=== PATIENT | male | born 1955 | race Caucasian/White ===

== ENCOUNTER 2025-07-22 13:36 | Inpatient (IN) ==
--- NOTE | 2025-07-22 14:07 | Emergency Department Note ---
Impression & Plan CHANEL (acute kidney injury), Anemia, Acute hyponatremia, Alcohol use disorder ED Provider Note NAME: TRISTAN BULL AGE: 70 SEX: M : 1955 ARRIVES VIA: Walk-In INFORMANT: Patient, ED PROVIDER(S): Faisal Cain DO CHIEF COMPLAINT: abnormal outpatient labs HPI: This is a 70-year-old male with the PMHx of HTN and HLD presenting to [facility] for further evaluation of abnormal outpatient labs. Patient states that he is otherwise been in his normal state of health. He states he has no complaints at the present time. He states that these were routine labs. He states that he was told that his LFTs and kidney function were abnormal causing his presentation to the emergency department. The patient states that he has had worsening exertional fatigue over the last few months. The patient states that he has ongoing workup for possible issues with his heart secondary to his symptoms. He notes that he is on a statin and antihypertensives. He states that he recently finished a course of losartan and believes that he is not supposed to take this anymore. They deny fever or chills. No cough or congestion. Denies chest pain or palpitations. No shortness of breath. They deny abdominal pain, nausea and vomiting. No urinary complaints. He reports normal UOP. No recent changes in bowel movements. Patient denies recent changes in medications or OTC supplements. Patient offers no other complaints, today. ADDITIONAL HISTORY OBTAINED: Per HPI Chronic Medical/Social Conditions Affecting Care: Per HPI PAST MEDICAL HISTORY: See Below PAST SURGICAL HISTORY: See Below FAMILY HISTORY: See Below SOCIAL HISTORY: See Below HOME MEDICATIONS: See Below ALLERGIES: See Below VITALS: See Below PHYSICAL EXAMINATION: GENERAL: Sitting up in bed, alert, well appearing, well nourished, no distress, non-toxic EYE EXAM: normal conjunctiva. OROPHARYNX: no exudate, no erythema, lips, buccal mucosa, and tongue normal and mucous membranes are moist NECK: supple, no nuchal rigidity, no adenopathy, non-tender LUNGS: Clear to auscultation. Normal chest wall mechanics HEART: no murmurs, regular rate, regular rhythm ABDOMEN: abdomen soft, non-tender, no masses, no rebound or guarding. BACK: Back is symmetrical on inspection and there is no deformity, no midline tenderness, no CVA tenderness. SKIN: no rashes and no bruising UPPER EXTREMITIES: upper extremities are grossly normal. LOWER EXTREMITIES: No pitting edema. NEURO EXAM: Normal sensorium, GCS 15, normal speech, no gross weakness of arms, no gross weakness of legs. MEDICAL DECISION MAKING: Differential diagnoses includes but not limited to acute renal failure, obstructive uropathy, electrolyte derangements, dehydration, medication side effect, hepatorenal syndrome In summary, this is a 70 year old male who presented with abnormal outpatient labs. Differential as above. Nursing notes and pertinent past medical records reviewed. Vital signs reviewed and the patient is afebrile and HDS. History and presentation revealed recent outpatient labs at [place]. He was told abnormal LFTs and kidney function. ED psychiatric secretary will work on obtaining these records. Patient states that he feels in his normal state of health and has no complaints. He does note exertional fatigue that has worsened over the last few months. He is being evaluated for possible issues with his heart per patient. Physical examination revealed as above. As a result of my initial evaluation, we will plan to repeat labs. [facility] records were obtained. Labs of note show mild hypokalemia, hyponatremia, hypochloridemia, increased anion gap likely secondary to uremia. Creatinine is 4.46. Slight transaminitis. It does appear the patient has liver disease that he does not appear to be aware of. He appears to have an ultrasound from 2021 that showed evidence of cirrhosis. Labs in 2021 did show a transaminitis. It is suspected that this is related to alcohol use. Diagnostics interpreted by me include EKG and cardiac monitoring as listed below: -Cardiac Monitoring: An order was placed for continuous cardiac monitoring. The monitor shows a rate of 70-100s with regular rhythm. -ECG: normal sinus rhythm at a ventricular rate of [address] segment changes to suggest STEMI. Intervals are within normal limits. Patient completed laboratory studies and imaging. Results independently interpreted by me are mild anemia from baseline. No significant leukocytosis. Lactate levels normal. Acute renal failure on CMP but he is making urine. No obstruction. Renal US ordered. The patient was managed with close observation and telemetry given that he is high risk for decompensation and electrolyte derangements leading to arrhythmias. I suspect his CHANEL could be related to his antihypertensive agents. He does have alcohol use disorder and he will need to be closely monitored for withdrawal. Ultimately, the decision was made to admit the patient for CHANEL and hyponatremia. I discussed the case with the hospitalist service via telephone/T[employer] and they are agreeable to admit the patient to their services. Based on the above, including the patient's age, coexisting illnesses, labs, imaging, and exam findings the decision to treat as an inpatient. I discussed the patient with the hospitalist team who recommended admission to their services. They received the medications, treatments, interventions indicated above and their condition remained guarded. I discussed my findings with the patient and their family and they understand and agree with the treatment plan. All patient / family questions were answered to their satisfaction. Consults/Care Managements Discussions: Per MDM ER treatment provided: See above Procedures:none Critical Care: None The chart was completed utilizing [employer] Speech voice recognition software. Grammatical errors, random word insertions, pronoun errors, and incomplete sentences are an occasional consequence of this system due to software limitations, ambient noise, and hardware issues. Any formal questions or concerns about the content, text, or information contained within the body of this dictation should be directly addressed to the physician for clarification. Past Med/Surg History Problem List (Updated 07/23/25 @ 14:24 by Faisal Cain DO) Alcohol use disorder (Acute) Acute hyponatremia (Acute) Anemia (Acute) CHANEL (acute kidney injury) (Acute) Elevated LFTs Anemia Hyponatremia CHANEL (acute kidney injury) Actinic keratosis (Acute) Basal cell carcinoma of left lower extremity (Acute) Dermatitis, nummular (Acute) Dermatitis, seborrheic (Acute) Dysplastic nevus (Acute) History of basal cell carcinoma (Acute) History of squamous cell carcinoma in situ of skin (Acute) Neoplasm of uncertain behavior of skin (Acute) Rosacea (Acute) Urticaria (Acute) Skin cancer (Acute) Hypertension (Chronic) Malignant melanoma of left lateral thigh hx Medical History (Updated 07/23/25 @ 14:24 by Faisal Cain DO) Trouble getting to sleep Anxiety History of COVID-05 Oct 2023 > + home test/felt like i had a cold. Resolved. No current s/s. History of colon polyps x1 8 yr ago & removed Discomfort of back recent/noticing with extensive walking History of prediabetes Hypertension Hyperlipidemia Skin cancer BCC RT WRIST/hx removed Surgical History (Updated 07/22/25 @ 18:13 by Diana Srinivasan MD) H/O melanoma excision (04/07/20) Wide Local Excision Left Thigh Melanoma, Left Inguinal [place] Lymph Node Biopsy and Right Groin Exploration Dr. Mills 04/07/2020 Hx of cataract surgery right Hx of vasectomy History of colonoscopy [place] teeth removed History of tonsillectomy Status post left foot surgery H/O hernia repair at Family History (Updated 07/22/25 @ 18:13 by Diana Srinivasan MD) Father Heart disease, Onset Age: 48 Father of an UT at age 48 Sister Diabetes Scleroderma Other Dementia Social History (Updated 07/22/25 @ 18:15 by Diana Srinivasan MD) Smoking Status: Former smoker Tobacco Type: Cigarettes Second Hand Exposure: No; Do You Dip or Chew Tobacco: No; Hx Alcohol Use: Yes Alcohol type: beer Alcohol Intake Frequency: 4 or More x per/Week Alcohol Intake Frequency Comment: 3 beers Hx Substance Use: Yes Non-Prescribed Medications: Marijuana Substance Use Type Other:: card for sleep > advised Preferred Language: Ug[place] Communication Ability: Effective 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 Required: No Beliefs That Will Affect Care: None marital status: Current Living Situation: Spouse current occupational status: retired 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[employer], 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 [employer] Other Information That Helps Us Care for You: No Feels Safe at Home: Yes Safety Concerns: Feels Safe At This Time Assistive Devices: None Allergies Allergies Allergy/AdvReac Type Severity Reaction Status Date / Time cyclobenzaprine Allergy Unknown "FEELS Verified 12/19/23 09:33 [From Flexeril] DRUNK WITH MUSCLE RELAXERS" Home Meds Home Medications Medication Instructions Recorded Confirmed multivitamin (Daily Multi-Vitamin 1 tab PO QAM 03/01/20 07/22/25 tablet) losartan 50 mg tablet (Cozaar) 50 mg PO QAM 03/15/20 07/22/25 Medical Marijuana Card 1 dose PO UD PRN anxiety/sleep 11/26/23 07/22/25 chlorthalidone 25 mg tablet 25 mg PO DAILY 07/22/25 07/22/25 rosuvastatin 40 mg tablet 40 mg PO DAILY 07/22/25 07/22/25 Results & Data (ED) Vital Signs Vital Signs - 24 hr 07/22/25 14:23 07/22/25 15:00 07/22/25 16:00 Pulse Rate 85 79 81 Pulse Rate from SpO2 Sensor 79 88 Respiratory Rate 13 13 15 Blood Pressure 117/74 134/79 136/104 H Blood Pressure Mean 79 97 114 Pulse Oximetry 93 97 96 Oxygen Delivery Method Room Air Room Air Room Air Laboratory Data 07/23/25 05:50 07/23/25 05:50 Lab Results 07/22/25 07/22/25 Range/Units 14:23 15:50 WBC 9.87 (4.8-10.8) K/ul RBC 3.66 L (4.70-6.10) M/uL Hgb 12.9 L (14.0-18.0) g/dl Hct 37.4 L (42.0-52.0) % MCV 102.2 H (80.0-100.0) fL MCH 35.2 H (25.0-34.0) pg MCHC 34.5 (32.0-36.0) g/dL RDW Std Deviation 47.1 H (36.4-46.3) fL RDW Coeff of [place] 12.5 (11.5-14.5) % Plt Count 163 (130-400) K/uL MPV 9.6 (9.4-12.4) fL Immature Gran % (Auto) 0.3 % Neut % (Auto) 78.3 % Lymph % (Auto) 12.0 % [place] % (Auto) 7.9 % Eos % (Auto) 0.9 % Baso % (Auto) 0.6 % Neut # (Auto) 7.73 H (1.40-6.50) K/uL Lymph # (Auto) 1.18 L (1.20-3.40) K/uL [place] # (Auto) 0.78 H (0.11-0.59) K/uL Eos # (Auto) 0.09 (0.00-0.50) K/uL Baso # (Auto) 0.06 (0.00-0.20) K/uL Immature Gran # (Auto) 0.03 (0.01-0.20) K/uL PT 11.4 (9.0-12.0) Seconds INR 1.1 (0.9-1.1) APTT 27 (21-31) Seconds PTT Ratio 1.0 Sodium 133 L (136-145) mmol/L Potassium 3.6 (3.5-5.1) mmol/L Chloride 91 L (98-107) mmol/L Carbon Dioxide 29 (21-32) mmol/L Anion Gap 13 H (3-11) BUN 35 H (6-23) mg/dl Creatinine 4.58 H* (0.6-1.4) mg/dl Est Cr Clr Drug Dosing 19.5 ml/min eGFR 12.96 BUN/Creatinine Ratio 7.6 L (10-20) Glucose 119 H (70-99(Fasting)) mg/dl Lactate 1.8 (0.4-2.0) mmol/L Calcium 9.8 (8.6-10.3) mg/dl Total Bilirubin 0.8 (0.2-1.0) mg/dl Direct Bilirubin 0.1 (0-0.2) mg/dl AST 46 H (13-39) U/L ALT 46 (7-52) U/L Alkaline Phosphatase 132 H (34-104) U/L Total Creatine Kinase 117 (30-223) U/L Total Protein 8.0 (6.0-8.3) gm/dl Albumin 4.4 (3.4-5.0) gm/dl Lipase 28 (11-82) U/L Urine Color Yellow Urine Appearance Clear (Clear) Urine pH 7.5 (4.5-7.5) Ur Specific [place] 1.006 (1.000-1.030) Urine Protein 2+ H (Negative) Urine Glucose (UA) Negative (Negative) Urine Ketones Negative (Negative) Urine Blood 2+ H (Negative) Urine Nitrite Negative (Negative) Urine Bilirubin Negative (Negative) Urine Urobilinogen Negative (Negative) Ur Leukocyte Esterase Trace H (Negative) Urine WBC (Auto) 6-10 H (0-5) /hpf Urine RBC (Auto) 0-2 (0-2) /hpf U Hyaline Cast (Auto) 0-2 (0-2) /lpf U Epithel Cells (Auto) 3-5 H (0-2) /hpf Urine Bacteria (Auto) None Seen (None Seen) Ur Random Creatinine 41.8 mg/dl Ur Random Sodium 31 mmol/L Urine Comment Administered Medications Cyanocobalamin (Cyanocobalamin 1000 Mcg/Ml Vial) 1,000 mcg IM QAM [facility] Stop: 07/25/25 09:01 Last Admin: 07/23/25 09:40 Dose: 1,000 mcg Documented By: BAO Folic Acid (Folic Acid 1 Mg Tab) 1 mg PO QAM OPAL Stop: 08/22/25 08:59 Last Admin: 07/23/25 09:40 Dose: 1 mg Documented By: BAO Heparin Sodium (Porcine) (Heparin Sod 5,000 Unit/0.5 Ml Vial) 5,000 units SQ Q12 OPAL Stop: 08/21/25 21:03 Last Admin: 07/23/25 09:41 Dose: 5,000 units Documented By: Admin: 07/22/25 21:23 Dose: Not Given Documented By: DIANDRA Thiamine HCl (Thiamine Hcl 100 Mg Tab) 100 mg PO QAM OPAL Stop: 08/22/25 08:59 Last Admin: 07/23/25 09:40 Dose: 100 mg Documented By: JASON Discontinued Medications Sodium Chloride (Nss) 1,000 mls @ 125 mls/hr IV .Q8H OPAL Stop: 07/23/25 01:14 Last Infusion: 07/23/25 03:41 Dose: Infused Documented By: Admin: 07/22/25 17:32 Dose: 125 mls/hr Documented By: KIRA Potassium Chloride (Potassium Chloride Crtab 20 Meq Tabcr) 20 meq PO NOW STA Stop: 07/23/25 08:28 Last Admin: 07/23/25 09:40 Dose: 20 meq Documented By: [facility] Imaging Data Radiologist's Impression: Renal Ultrasound 07/22/25 15:10 Technique: Renal sonography was performed Findings: The kidneys are of normal size and echogenicity. The right kidney measures 14.9 cm in length and the left kidney measures 14.3 cm in length. There is no hydronephrosis or visualized hydroureter. No definite renal calculus or mass is seen. There is a 2.9 cm right renal cyst and there is a 3.7 cm left renal cyst The urinary bladder appears unremarkable. Impression: Bilateral renal cysts Electronically signed by Carmelo Steven 07-22-2025 5:28 PM Discharge Plan Visit Data Chief Complaint: Abnormal Labs/Diagnostic Testing Stated Complaint: DOC REFFEREAL ED Provider: Faisal Cain Discharge Problem: CHANEL (acute kidney injury), Anemia, Acute hyponatremia, Alcohol use disorder Patient Disposition: Admitted As Inpatient Condition: Serious Discharge Instructions Interventions: ED Discharge Assessment Last Done: 07/22/25 20:12
[2025-07-22 14:39] LABS: Hematocrit (blood only) 37.4 % (42.0-52.0); Hemoglobin 12.9 g/dl (14.0-18.0); Immature Granulocytes # (auto) 0.03 K/uL (0.01-0.20); Immature Granulocytes % (auto) 0.3 %; Mean Corpuscular Hemoglobin 35.2 pg (25.0-34.0); Mean Corpuscular Volume 102.2 fL (80.0-100.0); Platelet Count 163 K/uL (130-400); RDW Standard Deviation 47.1 fL (36.4-46.3); Red Blood Count 3.66 M/uL (4.70-6.10); White Blood Count 9.87 K/ul (4.8-10.8)
[2025-07-22 15:04] LABS: Alanine Aminotransferase 46.0 U/L (7-52); Albumin Level 4.4 gm/dl (3.4-5.0); Alkaline Phosphatase 132.0 U/L (34-104); Anion Gap 13.0 (3-11); Bilirubin,Total 0.8 mg/dl (0.2-1.0); Blood Urea Nitrogen 35.0 mg/dl (6-23); Calcium 9.8 mg/dl (8.6-10.3); Carbon Dioxide 29.0 mmol/L (21-32); Chloride 91.0 mmol/L (98-107); Creatinine Clr Calc Pharmacy 19.5 ml/min; Glucose 119.0 mg/dl (70-99(Fasting)); Lipase 28.0 U/L (11-82); Potassium 3.6 mmol/L (3.5-5.1); Sodium 133.0 mmol/L (136-145); Total Protein 8.0 gm/dl (6.0-8.3)
[2025-07-22 15:16] LABS: INR 1.1 (0.9-1.1); Partial Thromboplastin Time 27 Seconds (21-31); Prothrombin Time 11.4 Seconds (9.0-12.0)
--- NOTE | 2025-07-22 15:28 | History & Physical Report ---
Date of Service July 22, 2025 Assessment & Plan (1) CHANEL (acute kidney injury): (2) Hyponatremia: (3) Anemia: (4) Elevated LFTs: Plan This patient is a 70-year-old male with a history of HTN, hyperlipidemia, prediabetes, cirrhosis of the liver, and melanoma who presents to the ED at the direction of his PCP who found him to have an acute kidney injury and mildly elevated LFTs on outpatient labs. He has been having some worsening fatigue over the last month which is why the labs were drawn. He reports he typically walks 1 mile every day and noticed for the last month that he is only able to walk about three quarters of a mile before becoming fatigued. He denies chest pain or shortness of breath. He has also had some occasional lightheadedness with standing recently. He denies any significant abdominal distention. He does report some chronic swelling of the legs which was worse in February hence why he was placed on chlorthalidone and losartan for elevated blood pressure at that time. He denies any flank pain or abdominal pain, denies blood in the urine. No nausea/vomiting or diarrhea. He is making urine and otherwise feeling well. In the ED, his creatinine was found to be elevated at 4.58, sodium mildly low at 133, with a mild macrocytic anemia, and mildly elevated AST and alkaline phosphatase. His UA showed 2+ blood and 2+ protein but no RBCs or signs of infection. A renal ultrasound showed some renal cysts but otherwise normal. He will be admitted for acute kidney injury. #Acute kidney injury/hyponatremia-likely initially prerenal from chlorthalidone and ARB but with chronic use, now has led to ATN. Fortunately, other than some mild volume overload, he is not having any significant issues due to his CHANEL. He is nonoliguric, no hyperkalemia or acidosis. Sodium mildly low at 133. UA with blood and protein but no RBCs. CK normal. He does not have diabetes but does have HTN. He has a family history of autoimmune disease with scleroderma and his sister. Renal ultrasound without evidence of obstruction - Admit to PCU for telemetry/arrhythmia monitoring -Discontinue home chlorthalidone and losartan - Check urine sodium and urine creatinine to calculate fractional excretion of sodium - Give 1 L of normal saline at 125 mL/h - Follow BMP in the a.m. -Consult nephrology for further evaluation/management #Elevated LFTs/cirrhosis of the liver-AST 46, alk phos 132-both of these have been elevated in the past and are better now than before. He does have a known history of cirrhosis which he was unaware of but is seen on imaging. He does drink 3 beers each day and is obese. Cirrhosis noted on abdominal ultrasound performed in 03/2025. Cirrhosis is likely cause of the elevation of his LFTs. He is also on a statin drug, CK is negative. - Would encourage cutting down or cessation of all alcohol use - Follow LFTs - Consider GI referral as an outpatient - Hold statin for now #HTN/HLD-BPs here are only mildly elevated. - Stopping chlorthalidone and losartan as noted for CHANEL - Holding statin for elevated LFTs #Prediabetes-he was told as an outpatient that with recent weight loss and exercise, he no longer has prediabetes - Check HgbA1c in the a.m. DVT prophylaxis-SQ heparin Disposition-admit to telemetry unit History of Present Illness Chief Complaint: Abnormal labs Primary Care Provider: Shweta Underwood This patient is a 70-year-old male with a history of HTN, hyperlipidemia, prediabetes, cirrhosis of the liver, and melanoma who presents to the ED at the direction of his PCP who found him to have an acute kidney injury and mildly elevated LFTs on outpatient labs. He has been having some worsening fatigue over the last month which is why the labs were drawn. He reports he typically walks 1 mile every day and noticed for the last month that he is only able to walk about three quarters of a mile before becoming fatigued. He denies chest pain or shortness of breath. He has also had some occasional lightheadedness with standing recently. He denies any significant abdominal distention. He does report some chronic swelling of the legs which was worse in February hence why he was placed on chlorthalidone and losartan for elevated blood pressure at that time. He denies any flank pain or abdominal pain, denies blood in the urine. No nausea/vomiting or diarrhea. He is making urine and otherwise feeling well. In the ED, his creatinine was found to be elevated at 4.58, sodium mildly low at 133, with a mild macrocytic anemia, and mildly elevated AST and alkaline phosphatase. His UA showed 2+ blood and 2+ protein but no RBCs or signs of infection. A renal ultrasound showed some renal cysts but otherwise normal. He will be admitted for acute kidney injury. Allergies Allergy/AdvReac Type Severity Reaction Status Date / Time cyclobenzaprine Allergy Unknown "FEELS Verified 12/19/23 09:33 [From Flexeril] DRUNK WITH MUSCLE RELAXERS" Home Medications Medication Instructions Recorded Confirmed Type multivitamin (Daily Multi-Vitamin 1 tab PO QAM 03/01/20 07/22/25 History tablet) losartan 50 mg tablet (Cozaar) 50 mg PO QAM 03/15/20 07/22/25 History Medical Marijuana Card 1 dose PO UD PRN anxiety/sleep 11/26/23 07/22/25 History chlorthalidone 25 mg tablet 25 mg PO DAILY 07/22/25 07/22/25 History rosuvastatin 40 mg tablet 40 mg PO DAILY 07/22/25 07/22/25 History Past Med/Surg History Problem List (Updated 07/22/25 @ 18:13 by Diana Srinivasan MD) Elevated LFTs Anemia Hyponatremia CHANEL (acute kidney injury) Actinic keratosis (Acute) Basal cell carcinoma of left lower extremity (Acute) Dermatitis, nummular (Acute) Dermatitis, seborrheic (Acute) Dysplastic nevus (Acute) History of basal cell carcinoma (Acute) History of squamous cell carcinoma in situ of skin (Acute) Neoplasm of uncertain behavior of skin (Acute) Rosacea (Acute) Urticaria (Acute) Skin cancer (Acute) Hypertension (Chronic) Malignant melanoma of left lateral thigh hx Medical History (Updated 07/22/25 @ 18:13 by Diana Srinivasan MD) Trouble getting to sleep Anxiety History of COVID-05 Oct 2023 > + home test/felt like i had a cold. Resolved. No current s/s. History of colon polyps x1 8 yr ago & removed Discomfort of back recent/noticing with extensive walking History of prediabetes Hypertension Hyperlipidemia Skin cancer BCC RT WRIST/hx removed Surgical History (Updated 07/22/25 @ 18:13 by Diana Srinivasan MD) H/O melanoma excision (04/07/20) Wide Local Excision Left Thigh Melanoma, Left Inguinal [place] Lymph Node Biopsy and Right Groin Exploration Dr. Mills 04/07/2020 Hx of cataract surgery right Hx of vasectomy History of colonoscopy [place] teeth removed History of tonsillectomy Status post left foot surgery H/O hernia repair at Family History (Updated 07/22/25 @ 18:13 by Diana Srinivasan MD) Father Heart disease, Onset Age: 48 Father of an AL at age 48 Sister Diabetes Scleroderma Other Dementia Social History (Updated 07/22/25 @ 18:15 by Diana Srinivasan MD) Smoking Status: Former smoker Tobacco Type: Cigarettes Second Hand Exposure: No; Do You Dip or Chew Tobacco: No; Hx Alcohol Use: Yes Alcohol type: beer Alcohol Intake Frequency: 4 or More x per/Week Alcohol Intake Frequency Comment: 3 beers Hx Substance Use: Yes Non-Prescribed Medications: Marijuana Substance Use Type Other:: card for sleep > advised Preferred Language: Cymro Communication Ability: Effective Manager Scheduling Required: No Beliefs That Will Affect Care: None marital status: Current Living Situation: Spouse current occupational status: retired 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 Feels Safe at Home: Yes Assistive Devices: Glasses Review of Systems Review of Systems: All systems reviewed & are unremarkable except as noted in HPI & below Physical Exam Constitutional: WD/WN, vitals as above Eyes: PERRL, conjunctivae normal, anicteric sclerae ENMT: external ear and nose normal, oropharynx normal Neck: trachea midline, no thyromegaly Respiratory: normal respiratory effort, lungs clear to auscultation Cardiovascular: Rate/Rhythm: regular rate and regular rhythm Heart Sounds: no murmur Extremities: + edema (1+ pitting edema legs bilaterally left greater than right) Chest (Breasts): Chest: normal inspection of chest Gastrointestinal (Abdomen): normal bowel sounds, soft, nontender, no hepatosplenomegaly Inspection/Auscultation: + abdomen abnormal to inspection (Reducible periumbilical hernia) Musculoskeletal: Extremities: extremities normal to inspection; no cyanosis and no clubbing Skin: no rashes, warm and dry Neurologic: moves all extremities and awake; no focal motor deficits Psychiatric: A+Ox3, euthymic affect Results & Data Results & Data Vital Signs (Past 12 Hours) Vital Signs Temp Pulse Resp BP Pulse Ox O2 Del Method 07/22/25 14:14 94 Room Air 07/22/25 13:40 36.4 C L 108 H 20 109/69 93 Room Air Laboratory Results CBC, PT/PTT/INR, CMP, lipase, UA reviewed Diagnostic Findings Renal Ultrasound 07/22/25 15:10 Technique: Renal sonography was performed Findings: The kidneys are of normal size and echogenicity. The right kidney measures 14.9 cm in length and the left kidney measures 14.3 cm in length. There is no hydronephrosis or visualized hydroureter. No definite renal calculus or mass is seen. There is a 2.9 cm right renal cyst and there is a 3.7 cm left renal cyst The urinary bladder appears unremarkable. Impression: Bilateral renal cysts Electronically signed by Carmelo Stevne 07-22-2025 5:28 PM ECG Additional Comments: ECG on 07/22/2025 at 1414 with normal sinus rhythm, rate 83, no acute ischemic changes Code Status & VTE Plan Code Status Full code VTE Prophylaxis Plan VTE Prophylaxis will be ordered: Yes PG Care Time/CCT Total # of Minutes Spent Total Time Spent with Patient: Total time spent is greater than 50% in coordination of care (as documented) at patient's floor/unit and/or counseling patient: Coding Level of Care Code 79809 INT INP/OBS CARE 3/75MIN Diagnoses CHANEL (acute kidney injury) N17.9 Hyponatremia E87.1 Anemia D64.9 Elevated LFTs R79.89
[2025-07-22 16:19] LABS: Appearance Urine Clear (Clear); Bacteria Urine Automated None Seen (None Seen); Cast Urine Automated 0-2 /lpf (0-2); Glucose Urine UA Negative (Negative); RBC Urine Automated 0-2 /hpf (0-2)
--- NOTE | 2025-07-22 17:28 | Ultrasound Report ---
Technique: Renal sonography was performed Findings: The kidneys are of normal size and echogenicity. The right kidney measures 14.9 cm in length and the left kidney measures 14.3 cm in length. There is no hydronephrosis or visualized hydroureter. No definite renal calculus or mass is seen. There is a 2.9 cm right renal cyst and there is a 3.7 cm left renal cyst The urinary bladder appears unremarkable. Impression: Bilateral renal cysts Electronically signed by Carmelo Steven 07-22-2025 5:28 PM
[2025-07-22] MEDS: SODIUM CHLORIDE 0.9% 1,000 ML IV SCH (17:32)
[2025-07-22 17:41] LABS: Creatine Kinase 117.0 U/L (30-223)
[2025-07-22] MEDS ORDERED: ONDANSETRON INJ 2 MG/ML 2 ML VIAL IV PRN (21:04)
[2025-07-22] MEDS ORDERED: ACETAMINOPHEN 325 MG TAB PO PRN (21:04)
[2025-07-22] MEDS: HEPARIN SOD 5,000 UNIT/0.5 ML VIAL SQ SCH (21:23)
[2025-07-23 06:35] LABS: Hematocrit (blood only) 32.7 % (42.0-52.0); Hemoglobin 11.5 g/dl (14.0-18.0); Immature Granulocytes # (auto) 0.02 K/uL (0.01-0.20); Immature Granulocytes % (auto) 0.3 %; Mean Corpuscular Hemoglobin 36.1 pg (25.0-34.0); Mean Corpuscular Volume 102.5 fL (80.0-100.0); Platelet Count 140 K/uL (130-400); RDW Standard Deviation 46.6 fL (36.4-46.3); Red Blood Count 3.19 M/uL (4.70-6.10); White Blood Count 7.86 K/ul (4.8-10.8)
[2025-07-23 07:03] LABS: Hemoglobin A1C 5.7 % (4.5-5.6)
[2025-07-23 07:04] LABS: Alanine Aminotransferase 34.0 U/L (7-52); Albumin Level 3.7 gm/dl (3.4-5.0); Alkaline Phosphatase 118.0 U/L (34-104); Anion Gap 13.0 (3-11); Bilirubin,Total 0.7 mg/dl (0.2-1.0); Blood Urea Nitrogen 40.0 mg/dl (6-23); Calcium 9.0 mg/dl (8.6-10.3); Carbon Dioxide 27.0 mmol/L (21-32); Chloride 96.0 mmol/L (98-107); Creatinine Clr Calc Pharmacy 17.4 ml/min; Glucose 109.0 mg/dl (70-99(Fasting)); Iron 31.0 mcg/dl (35-175); Magnesium 1.8 mg/dl (1.7-2.4); Potassium 3.0 mmol/L (3.5-5.1); Sodium 136.0 mmol/L (136-145); Total Iron Binding Cap Calc 270.0 mcg/dl (250-450); Total Protein 6.7 gm/dl (6.0-8.3); Transferrin 193.0 mg/dl (200-360); Transferrin (FE) Percent Satur 11.0 % (20-50)
[2025-07-23 07:13] LABS: Folate (Folic Acid),Ser orPlas 11.04 ng/ml (>5.38)
[2025-07-23 07:14] LABS: Vitamin B12 106.0 pg/ml (180-914)
[2025-07-23 07:16] LABS: Thyroid Stimulating Hormone 1.397 uIu/ml (0.300-4.500)
[2025-07-23 07:21] LABS: Ferritin 539.1 ng/ml (8-388)
--- NOTE | 2025-07-23 08:41 | Nephrology Consultation ---
Date of Consultation July 23, 2025 Assessment & Plan (1) CHANEL (acute kidney injury): Non-oliguric. Volume status acceptable. Electrolytes notable for mild hyponatremia and hypokalemia. Electrolyte replacement is being provided. There is no emergent indication for dialysis. US did not demonstrate obstruction. Duplex is pending. Urine microscopy notable for a few WBCs but otherwise no RBCs or casts. Etiology unclear. Differential includes ATN possibly triggered by hemodynamic changes from chlorthalidone and losartan, AIN, or possible an infiltrative disease or paraprotein. For additional evaluation, I have requested SIEP + FLC as well as 24 hour urine immunofixation. Defer renal biopsy pending additional monitoring. Hold losartan and chlorthalidone. Document strict I/O's. Repeat a serum metabolic profile tomorrow AM. (2) Hypertension: BP acceptable. Antihypertensives held. Low sodium diet. (3) Hyponatremia: Improving. Attributed to chlorthalidone. Hypokalemia is being treated with replacement. (4) Anemia: Noted B vitamin deficiency and functional iron deficiency. Screening SIEP requested. (5) Elevated LFTs: Statin held. History of Present Illness Reason for Consultation: CHANEL Requesting Physician: Diana Srinivasan MD Attending Physician: Diana Srinivasan MD History of Present Illness Mr. Raghu Brink ([place]) is a 70-year-old male with hypertension, hyperlipidemia, prediabetes, cirrhosis of the liver, and a history of melanoma resected from his thigh who presented to the ED at [facility] yesterday at the advice of his PCP for laboratory studies showing acute kidney injury and slight elevation in transaminases. Nasir generally feels well. He presented to the hospital without acute complaints. Activity tolerance has been decreased due to exertional fatigue over the past ~1-2 months. He denies significant dyspnea. He has not been experiencing chest pains or palpitations. He denies dizziness, syncope, or presyncope. He reports mild lightheadedness when standing. Nasir had recently developed lower extremity edema in his left ankle which has improved. In February, he was started on chlorthalidone and losartan for elevated blood pressure and fluid retention. BP improved with the medications. He has not experienced any change in urine output. He denies any GI symptoms. He denies any rash. He denies any NSAID use. Serum creatinine in February was 0.7 mg/dL. Serum creatinine on admission 4.58 and now 5.37 mg/dL. Electrolytes notable for mild hyponatremia and hypokalemia. Potassium replacement is being provided. Laboratory studies also notable for mild anemia. CK 117. UA demonstrates 2+ and +blood. Microscopy demonstrating 6-10 WBC, no RBCs or casts. Renal ultrasound demonstrates a 14.9 cm right kidney and 14.3 m left kidney. Kidneys are healthy in appearance and without signs of obstruction. a 2.9 cm cysts is noted on the right and 3.7 cm cyst on the left. Liver has hepatitic steatosis with evidence of cirrhosis. TTE recently completed for evaluation of exertional fatigue demonstrates normal LV size and function (LVEF 60-65%), mild LVH, and trace pulm v regurgitation but otherwise no significant valvular heart disease. He is normotensive. He is oxygenating well on room air. Allergies Allergy/AdvReac Type Severity Reaction Status Date / Time cyclobenzaprine Allergy Unknown "FEELS Verified 12/19/23 09:33 [From Flexeril] DRUNK WITH MUSCLE RELAXERS" Home Medications Medication Instructions Recorded Confirmed Type multivitamin (Daily Multi-Vitamin 1 tab PO QAM 03/01/20 07/22/25 History tablet) losartan 50 mg tablet (Cozaar) 50 mg PO QAM 03/15/20 07/22/25 History Medical Marijuana Card 1 dose PO UD PRN anxiety/sleep 11/26/23 07/22/25 History chlorthalidone 25 mg tablet 25 mg PO DAILY 07/22/25 07/22/25 History rosuvastatin 40 mg tablet 40 mg PO DAILY 07/22/25 07/22/25 History Patient History Medical History (Updated 07/22/25 @ 18:13 by Diana Srinivasan MD) Trouble getting to sleep Anxiety History of COVID-05 Oct 2023 > + home test/felt like i had a cold. Resolved. No current s/s. History of colon polyps x1 8 yr ago & removed Discomfort of back recent/noticing with extensive walking History of prediabetes Hypertension Hyperlipidemia Skin cancer BCC RT WRIST/hx removed Surgical History (Updated 07/22/25 @ 18:13 by Diana Srinivasan MD) H/O melanoma excision (04/07/20) Wide Local Excision Left Thigh Melanoma, Left Inguinal [place] Lymph Node Biopsy and Right Groin Exploration Dr. Mills 04/07/2020 Hx of cataract surgery right Hx of vasectomy History of colonoscopy [place] teeth removed History of tonsillectomy Status post left foot surgery H/O hernia repair at Family History (Updated 07/22/25 @ 18:13 by Diana Srinivasan MD) Father Heart disease, Onset Age: 48 Father of an [place] at age 48 Sister Diabetes Scleroderma Other Dementia Social History (Updated 07/22/25 @ 18:15 by Diana Srinivasan MD) Smoking Status: Former smoker Tobacco Type: Cigarettes Second Hand Exposure: No; Do You Dip or Chew Tobacco: No; Hx Alcohol Use: Yes Alcohol type: beer Alcohol Intake Frequency: 4 or More x per/Week Alcohol Intake Frequency Comment: 3 beers Hx Substance Use: Yes Non-Prescribed Medications: Marijuana Substance Use Type Other:: card for sleep > advised Preferred Language: Romanian Communication Ability: Effective Training And Development Coordinator Required: No Beliefs That Will Affect Care: None marital status: Current Living Situation: Spouse current occupational status: retired 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[place], 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 [employer] Other Information That Helps Us Care for You: No Feels Safe at Home: Yes Safety Concerns: Feels Safe At This Time Assistive Devices: Glasses Review of Systems Review of Systems: All systems reviewed & are unremarkable except as noted in HPI & below Physical Exam Constitutional: well developed; no acute distress Eyes: + anicteric sclerae; no conjunctival abn ormality ENMT: external ear and nose normal, oropharynx normal Neck: normal visual inspection and trachea midline Respiratory: normal respiratory effort Auscultation: lungs clear to auscultation bilaterally Cardiovascular: Rate/Rhythm: regular rate and regular rhythm Heart Sounds: normal S1 and normal S2 Extremities: + edema (L>R) Musculoskeletal: Extremities: no cyanosis and no clubbing Skin: facial telangectasias and rosacea Neurologic: Motor/Sensory: no tremor and no asterixis Psychiatric: Orientation: alert and oriented x 3 Results & Data Vital Signs (Past 12 Hours) Vital Signs Temp Pulse Pulse Resp BP Pulse Ox O2 Del Method 07/23/25 07:41 37.0 C 83 20 114/70 93 Room Air 07/23/25 07:27 97 H 07/23/25 04:11 37.0 C 88 20 109/67 94 Room Air 07/22/25 23:53 36.8 C 87 20 108/69 95 Room Air 07/22/25 21:14 107 H 07/22/25 21:04 Room Air 07/22/25 21:04 36.7 C 86 14 147/88 H 93 Room Air Laboratory Results Laboratory Results - last 24 hr 07/22/25 07/22/25 07/23/25 14:23 15:50 05:50 WBC 9.87 7.86 RBC 3.66 L 3.19 L Hgb 12.9 L 11.5 L Hct 37.4 L 32.7 L MCV 102.2 H 102.5 H MCH 35.2 H 36.1 H MCHC 34.5 35.2 RDW Std Deviation 47.1 H 46.6 H RDW Coeff of [place] 12.5 12.3 Plt Count 163 140 MPV 9.6 10.1 Immature Gran % (Auto) 0.3 0.3 Neut % (Auto) 78.3 76.3 Lymph % (Auto) 12.0 13.7 [place] % (Auto) 7.9 8.1 Eos % (Auto) 0.9 1.1 Baso % (Auto) 0.6 0.5 Neut # (Auto) 7.73 H 5.99 Lymph # (Auto) 1.18 L 1.08 L [place] # (Auto) 0.78 H 0.64 H Eos # (Auto) 0.09 0.09 Baso # (Auto) 0.06 0.04 Immature Gran # (Auto) 0.03 0.02 PT 11.4 INR 1.1 APTT 27 PTT Ratio 1.0 Sodium 133 L 136 Potassium 3.6 3.0 L Chloride 91 L 96 L Carbon Dioxide 29 27 Anion Gap 13 H 13 H BUN 35 H 40 H Creatinine 4.58 H* 5.37 H* D Est Cr Clr Drug Dosing 19.5 17.4 eGFR 12.96 10.71 BUN/Creatinine Ratio 7.6 L 7.4 L Glucose 119 H 109 H Estimat Average Glucose 117 Hemoglobin A1c 5.7 H Lactate 1.8 Calcium 9.8 9.0 Phosphorus 4.2 Magnesium 1.8 Iron 31 L TIBC 270 Transferrin 193 L Transferrin % Sat 11 L Ferritin 539.1 H Total Bilirubin 0.8 0.7 Direct Bilirubin 0.1 0.1 AST 46 H 36 ALT 46 34 Alkaline Phosphatase 132 H 118 H Total Creatine Kinase 117 Total Protein 8.0 6.7 Albumin 4.4 3.7 Lipase 28 Vitamin B12 106 L Folate 11.04 TSH 1.397 Urine Color Yellow Urine Appearance Clear Urine pH 7.5 Ur Specific [place] 1.006 Urine Protein 2+ H Urine Glucose (UA) Negative Urine Ketones Negative Urine Blood 2+ H Urine Nitrite Negative Urine Bilirubin Negative Urine Urobilinogen Negative Ur Leukocyte Esterase Trace H Urine WBC (Auto) 6-10 H Urine RBC (Auto) 0-2 U Hyaline Cast (Auto) 0-2 U Epithel Cells (Auto) 3-5 H Urine Bacteria (Auto) None Seen Ur Random Creatinine 41.8 Ur Random Sodium 31 Urine Comment Diagnostic Findings Renal ultrasound Findings: The kidneys are of normal size and echogenicity. The right kidney measures 14.9 cm in length and the left kidney measures 14.3 cm in length. There is no hydronephrosis or visualized hydroureter. No definite renal calculus or mass is seen. There is a 2.9 cm right renal cyst and there is a 3.7 cm left renal cyst The urinary bladder appears unremarkable. Impression: Bilateral renal cysts PG Care Time/CCT Total # of Minutes Spent Total Time Spent with Patient: Total time spent is greater than 50% in coordination of care (as documented) at patient's floor/unit and/or counseling patient: Coding Level of Care Code 68115 IN/OBS CONSULT LVL 4,60M Diagnoses CHANEL (acute kidney injury) N17.9 Hypertension I10 Hyponatremia E87.1 Anemia D64.9 Elevated LFTs R79.89
--- NOTE | 2025-07-23 09:35 | Ultrasound Report ---
DOPPLER ULTRASOUND OF THE RENAL ARTERIES CLINICAL HISTORY: Acute kidney injury. COMPARISON STUDY: Renal ultrasound July 22, 2025. CT of the abdomen and pelvis October 22, 2007. TECHNIQUE: Color and duplex Doppler sonography of the abdominal aorta and renal arteries was performe d. FINDINGS: The right kidney measures 13.7 cm in maximal dimension and the left measures 15.5 cm. There is no hydronephrosis. The bilateral renal arteries and veins were patent. Peak systolic velocity wit hin the abdominal aorta was 135 cm/s. Peak systolic velocity within the right renal artery was 85 cm/ s and the peak systolic velocity within the left renal artery was 82 cm/s. Segmental waveforms within each kidney were normal. IMPRESSION: No sonographic evidence for renal artery stenosis. ACT 112: Negative or not required by law. Electronically signed by: Eliot Bowen M.D. 07/23/2025 9:33 AM
[2025-07-23] MEDS: FOLIC ACID 1 MG TAB PO SCH (09:40)
[2025-07-23] MEDS: THIAMINE HCL 100 MG TAB PO SCH (09:40)
[2025-07-23] MEDS: POTASSIUM CHLORIDE CRTAB 20 MEQ TABCR PO STA (09:40)
[2025-07-23] MEDS: CYANOCOBALAMIN 1000 MCG/ML VIAL IM SCH (09:40)
--- NOTE | 2025-07-23 09:57 | Electrocardiogram Report ---
Test Reason : Blood Pressure : */* mmHG Vent. Rate : 83 BPM Atrial Rate : 83 BPM P-R Int : 186 ms QRS Dur : 88 ms QT Int : 368 ms P-R-T Axes : 26 -1 33 degrees QTcB Int : 432 ms Normal sinus rhythm Low voltage QRS Nonspecific ST and T wave abnormality Abnormal ECG When compared with ECG of 12-Mar-2020 12:48, Nonspecific T wave abnormality now evident in Anterior leads Confirmed by Rishi Wilkins ([id number]) on 07/23/2025 9:57:01 AM Referred By: Confirmed By: Rishi Wilkins
--- NOTE | 2025-07-23 18:30 | Hospitalist Progress Note ---
Date of Service July 23, 2025 Assessment & Plan (1) CHANEL (acute kidney injury): (2) Hyponatremia: (3) Anemia: (4) Elevated LFTs: Plan This patient is a 70-year-old male with a history of HTN, hyperlipidemia, prediabetes, cirrhosis of the liver, and melanoma who presents to the ED at the direction of his PCP who found him to have an acute kidney injury and mildly elevated LFTs on outpatient labs. He has been having some worsening fatigue over the last month which is why the labs were drawn. He reports he typically walks 1 mile every day and noticed for the last month that he is only able to walk about three quarters of a mile before becoming fatigued. He denies chest pain or shortness of breath. He has also had some occasional lightheadedness with standing recently. He denies any significant abdominal distention. He does report some chronic swelling of the legs which was worse in February hence why he was placed on chlorthalidone and losartan for elevated blood pressure at that time. He denies any flank pain or abdominal pain, denies blood in the urine. No nausea/vomiting or diarrhea. He is making urine and otherwise feeling well. On admission, his creatinine was found to be elevated at 4.58, sodium mildly low at 133, with a mild macrocytic anemia, and mildly elevated AST and alkaline phosphatase. His UA showed 2+ blood and 2+ protein but no RBCs or signs of infection. A renal ultrasound showed some renal cysts but otherwise normal. He is admitted for acute kidney injury. #Acute kidney injury/hyponatremia/hypokalemia-likely initially prerenal from chlorthalidone and ARB but with chronic use, now has led to ATN. Fortunately, other than some mild volume overload, he is not having any significant issues due to his CHANEL. He is nonoliguric, no hyperkalemia or acidosis. Sodium mildly low at 133 and now normalized. UA with blood and protein but no RBCs. CK normal. FeNa 2.6% on admission consistent with intrinsic renal failure. He does not have diabetes but does have HTN. He has a family history of autoimmune disease with scleroderma and his sister. Renal ultrasound without evidence of obstruction. Renal Doppler negative. Appreciate nephrology consultation. Creatinine worsened to 5.3 after 1 L normal saline. K is low at 3.0 - Continued stay on telemetry unit for arrhythmia monitoring -Discontinued home chlorthalidone and losartan - Follow BMP in the a.m. - Nephrology recommended SIEP, FLC, 24-hour urine CAMPOS/UPEP, and defer on renal biopsy pending additional monitoring - Replace KCl 20 mEq p.o. x 1 #Elevated LFTs/cirrhosis of the liver-AST 46, alk phos 132-both of these have been elevated in the past and are better now than before. He does have a known history of cirrhosis which he was unaware of but is seen on imaging. He may have some cognitive impairment as he follows regularly with GI for his liver issues but does not recall this. He does drink 3 beers each day and is obese. Cirrhosis noted on abdominal ultrasound performed in 03/2025. Cirrhosis is likely cause of the elevation of his LFTs. He is also on a statin drug, CK is negative. LFTs now normalized except for mild elevation of alkaline phosphatase. - Would encourage cutting down or cessation of all alcohol use - Follow LFTs - Follows with GI at [facility] as an outpatient - Hold statin for now #B12 deficiency anemia-hemoglobin low at 11-12, macrocytic. B12 quite low at 106. Iron studies consistent with chronic disease, folate and TSH are normal. Patient's macrocytosis likely due to alcohol use - Give cyanocobalamin 1000 mcg IM daily x 3 days followed by 1000 mcg p.o. daily after that - Encouraged alcohol cessation #HTN/HLD-BPs here are only mildly elevated. - Stopping chlorthalidone and losartan as noted for CHANEL - Holding statin for elevated LFTs #Prediabetes-he was told as an outpatient that with recent weight loss and exercise, he no longer has prediabetes. HgbA1c just barely in prediabetic range at 5.7% -No treatment for now - Continue low carbohydrate diet and weight loss at home DVT prophylaxis-SQ heparin Disposition-continued stay on telemetry unit Admission and Anticipated Discharge Date Admission Date: July 22, 2025 Subjective Patient reports feeling "fine." He has no concerns. Denies shortness of breath. No fatigue. He is making urine. Physical Exam Constitutional: WD/WN, vitals as above Neck: trachea midline, no thyromegaly Respiratory: normal respiratory effort, lungs clear to auscultation Cardiovascular: Rate/Rhythm: regular rate and regular rhythm Heart Sounds: no murmur Extremities: + edema (1+ pitting edema legs bilaterally left greater than right) Chest (Breasts): Chest: normal inspection of chest Musculoskeletal: Extremities: extremities normal to inspection; no cyanosis and no clubbing Skin: no rashes, warm and dry Neurologic: moves all extremities and awake; no focal motor deficits Psychiatric: A+Ox3, euthymic affect Results & Data Results & Data Vital Signs (Past 12 Hours) Vital Signs Temp Pulse Pulse Resp BP Pulse Ox O2 Del Method 07/23/25 15:37 85 07/23/25 15:24 36.8 C 81 20 104/64 95 Room Air 07/23/25 07:41 37.0 C 83 20 114/70 93 Room Air 07/23/25 07:27 97 H Laboratory Results CBC, BMP, HgbA1c, magnesium, phosphorus, iron studies, B12, LFTs, folate, TSH, urine sodium, urine creatinine reviewed Diagnostic Findings Renal Doppler reviewed PG Care Time/CCT Total # of Minutes Spent Total Time Spent with Patient: Total time spent is greater than 50% in coordination of care (as documented) at patient's floor/unit and/or counseling patient: Coding Level of Care Code 28995 SUB INP/OBS CARE 235MIN Diagnoses CHANEL (acute kidney injury) N17.9 Hyponatremia E87.1 Anemia D64.9 Elevated LFTs R79.89
[2025-07-24 08:00] LABS: Hematocrit (blood only) 35.4 % (42.0-52.0); Hemoglobin 12.1 g/dl (14.0-18.0); Mean Corpuscular Hemoglobin 35.6 pg (25.0-34.0); Mean Corpuscular Volume 104.1 fL (80.0-100.0); Platelet Count 166 K/uL (130-400); RDW Standard Deviation 47.4 fL (36.4-46.3); Red Blood Count 3.40 M/uL (4.70-6.10); White Blood Count 7.78 K/ul (4.8-10.8)
[2025-07-24 08:33] LABS: Alanine Aminotransferase 31.0 U/L (7-52); Albumin Globulin Ratio 1.1 (0.9-2); Albumin Level 4.0 gm/dl (3.4-5.0); Alkaline Phosphatase 125.0 U/L (34-104); Anion Gap 15.0 (3-11); Bilirubin,Total 0.7 mg/dl (0.2-1.0); Blood Urea Nitrogen 45.0 mg/dl (6-23); Calcium 9.6 mg/dl (8.6-10.3); Carbon Dioxide 26.0 mmol/L (21-32); Chloride 97.0 mmol/L (98-107); Creatinine Clr Calc Pharmacy 15.1 ml/min; Globulin 3.5 gm/dl (2.5-4.0); Glucose 105.0 mg/dl (70-99(Fasting)); Potassium 3.2 mmol/L (3.5-5.1); Sodium 138.0 mmol/L (136-145); Total Protein 7.5 gm/dl (6.0-8.3)
--- NOTE | 2025-07-24 10:24 | Nephrology Progress Note ---
Date of Service July 24, 2025 Assessment & Plan (1) CHANEL (acute kidney injury): Plan: Non-oliguric. Volume status acceptable. Electrolytes notable for mild hypokalemia. Electrolyte replacement is being provided. There is no emergent indication for dialysis. No NSAID use. US did not demonstrate obstruction. Duplex did not demonstrate significant ANGELA. Urine microscopy notable for a few WBCs but otherwise no RBCs or casts. Etiology unclear. Differential includes ATN possibly triggered by hemodynamic changes from chlorthalidone and losartan, AIN, or possible an infiltrative disease or paraprotein. SIEP + FLC are pending. 24 hour urine immunofixation is being collected. Defer renal biopsy pending additional monitoring. Hold losartan and chlorthalidone. Document strict I/O's. Repeat a serum metabolic profile tomorrow AM. Low dose KCl provided for hypokalemia. (2) Hypertension: Plan: BP acceptable. Antihypertensives held. Low sodium diet. (3) Anemia: Plan: Noted B vitamin deficiency and functional iron deficiency. Screening SIEP pending. (4) Elevated LFTs: Plan: Improvement noted. Statin held. ETOH use potentially contributing. Followed by [facility] for CLD. (5) Alcohol use disorder: Plan: Thiamine and folate replacement are being provided. Admission and Anticipated Discharge Date Admission Date: July 22, 2025 Subjective No acute events overnight. Some confusion noted by staffing branch manager. Nasir was sitting comfortably in his bedside chair this AM reading a book. He states that he feels well. He remains non-oliguric. Some LE edema persists but otherwise no significant fluid retention. Appetite is good. Nasir is breathing comfortably. I discussed the patient with Dr. Srinivasan this morning. Review of Systems Review of Systems: All systems reviewed & are unremarkable except as noted in HPI & below Physical Exam Constitutional: well developed; no acute distress Eyes: + anicteric sclerae; no conjunctival abn ormality ENMT: external ear and nose normal, oropharynx normal Neck: normal visual inspection and trachea midline Respiratory: normal respiratory effort Auscultation: lungs clear to auscultation bilaterally Cardiovascular: Rate/Rhythm: regular rate and regular rhythm Heart Sounds: normal S1 and normal S2 Extremities: + edema (L>R) Musculoskeletal: Extremities: no cyanosis and no clubbing Neurologic: Motor/Sensory: no asterixis Psychiatric: Orientation: alert and oriented x 3 Results & Data Vital Signs (Past 12 Hours) Vital Signs Temp Pulse Pulse Resp BP Pulse Ox O2 Del Method 07/24/25 07:58 36.6 C 80 18 132/82 93 Room Air 07/24/25 04:00 36.8 C 81 18 117/72 96 Room Air 07/23/25 23:00 36.8 C 84 18 128/79 95 Room Air 07/23/25 23:00 85 Laboratory Results Laboratory Results - last 24 hr 07/24/25 07:35 WBC 7.78 RBC 3.40 L Hgb 12.1 L Hct 35.4 L MCV 104.1 H MCH 35.6 H MCHC 34.2 RDW Std Deviation 47.4 H RDW Coeff of [place] 12.3 Plt Count 166 MPV 10.0 Sodium 138 Potassium 3.2 L Chloride 97 L Carbon Dioxide 26 Anion Gap 15 H BUN 45 H Creatinine 6.16 H* D Est Cr Clr Drug Dosing 15.1 eGFR 9.08 BUN/Creatinine Ratio 7.3 L Glucose 105 H Calcium 9.6 Total Bilirubin 0.7 AST 30 ALT 31 Alkaline Phosphatase 125 H Total Protein 7.5 Total Protein (PEP) Pending Albumin 4.0 Albumin (PEP) Pending Globulin 3.5 Albumin/Globulin Ratio 1.1 Ibmlb-[id number] Pending Pzeaq-5-Onkzectot Pending [id number] Pending [id number] Pending Gamma Globulins Pending Monoclonal Peak 3 Pending Ser Monoclonl Protein Pending Ser Monoclonal Prot 2 Pending PEP Interpretation Pending Serum Immunofixation Pending Free [place] LC, Quant Pending Free Lambda LC, Quant Pending Free [place]/Lambda Ratio Pending PG Care Time/CCT Total # of Minutes Spent Total Time Spent with Patient: Total time spent is greater than 50% in coordination of care (as documented) at patient's floor/unit and/or counseling patient: Coding Level of Care Code 76042 SUB INP/OBS CARE 3/50MIN Diagnoses CHANEL (acute kidney injury) N17.9 Hypertension I10 Anemia D64.9 Elevated LFTs R79.89 Alcohol use disorder F10.90
[2025-07-24] MEDS: POTASSIUM CHLORIDE 10 MEQ TABCR PO STA (10:44)
--- NOTE | 2025-07-24 16:48 | Hospitalist Progress Note ---
Date of Service July 24, 2025 Assessment & Plan (1) CHANEL (acute kidney injury): (2) Hyponatremia: (3) Anemia: (4) Elevated LFTs: Plan This patient is a 70-year-old male with a history of HTN, hyperlipidemia, prediabetes, cirrhosis of the liver, and melanoma who presents to the ED at the direction of his PCP who found him to have an acute kidney injury and mildly elevated LFTs on outpatient labs. He has been having some worsening fatigue over the last month which is why the labs were drawn. On admission, his creatinine was found to be elevated at 4.58, sodium mildly low at 133, with a mild macrocytic anemia, and mildly elevated AST and alkaline phosphatase. His UA showed 2+ blood and 2+ protein but no RBCs or signs of infection. A renal ultrasound showed some renal cysts but otherwise normal. He is nonoliguric He is admitted for acute kidney injury. #Acute kidney injury/hyponatremia/hypokalemia-likely initially prerenal from chlorthalidone and ARB but with chronic use, now has led to ATN. Fortunately, other than some mild volume overload, he is not having any significant issues due to his CHANEL. He is nonoliguric, no hyperkalemia or acidosis. Sodium mildly low at 133 and now normalized. UA with blood and protein but no RBCs. CK normal. FeNa 2.6% on admission consistent with intrinsic renal failure. He does not have diabetes but does have HTN. No NSAID use. He has a family history of autoimmune disease with scleroderma and his sister. Renal ultrasound without evidence of obstruction. Renal Doppler negative. Appreciate nephrology consultation-etiology unclear differential includes ATN triggered by hemodynamic changes from chlorthalidone and losartan, AIN, or possible infiltrative disease or paraprotein. Creatinine continues to worsen daily and now up to 6.16, potassium remains mildly low at 3.2 - Continued stay on telemetry unit for arrhythmia monitoring-none thus far - Discontinued home chlorthalidone and losartan - Follow BMP in the a.m. - Collecting 24-hour urine protein/CAMPOS - Nephrology also ordered SIEP, FLC - Likely will need renal biopsy if renal function not improving through the weekend - Replace KCl 10 mEq p.o. x 1 - Changed to low-sodium diet as per nephrology #Elevated LFTs/cirrhosis of the liver-on admission, AST 46, alk phos 132-both of these have been elevated in the past and are better now than before. He does have a known history of cirrhosis which he was unaware of but is seen on imaging. He may have some cognitive impairment as he follows regularly with GI for his liver issues but does not recall this. He does drink 3 beers each day and is obese. Cirrhosis noted on abdominal ultrasound performed in 03/2025. Cirrhosis is likely cause of the elevation of his LFTs. He is also on a statin drug, CK is negative. LFTs now normalized except for mild elevation of alkaline phosphatase. - encouraged him to abstain from alcohol - Follow LFTs - Follows with GI at [facility] as an outpatient - Continue to hold statin for now - He does seem to have some mild cognitive impairment-continue to monitor - Started folic acid 1 mg p.o. daily and thiamine 100 mg p.o. daily #B12 deficiency anemia-hemoglobin low at 11-12, macrocytic. B12 quite low at 106. Iron studies consistent with chronic disease, folate and TSH are normal. Patient's macrocytosis likely due to alcohol use - Give cyanocobalamin 1000 mcg IM daily x 3 days followed by 1000 mcg p.o. daily after that - Encouraged alcohol cessation #HTN/HLD-BPs here are normal - Stopping chlorthalidone and losartan as noted for CHANEL - Holding statin for elevated LFTs #Prediabetes-he was told as an outpatient that with recent weight loss and exercise, he no longer has prediabetes. HgbA1c just barely in prediabetic range at 5.7% - No treatment for now - Continue low carbohydrate diet and weight loss at home DVT prophylaxis-SQ heparin Disposition-continued stay on telemetry unit Admission and Anticipated Discharge Date Admission Date: July 22, 2025 Subjective Patient feels well today. Is making urine, denies shortness of breath or fatigue. Is moving his bowels regularly. He does not recall seeing the driller's offsider this morning. He does seem to have some memory loss. Telemetry with normal sinus rhythm with rates in the 80s to 90s Physical Exam Constitutional: WD/WN, vitals as above Neck: trachea midline, no thyromegaly Respiratory: normal respiratory effort, lungs clear to auscultation Cardiovascular: Rate/Rhythm: regular rate and regular rhythm Heart Sounds: no murmur Extremities: + edema (Trace is pitting edema legs bilaterally left greater than right-improved) Chest (Breasts): Chest: normal inspection of chest Musculoskeletal: Extremities: extremities normal to inspection; no cyanosis and no clubbing Skin: no rashes, warm and dry Neurologic: moves all extremities and awake; no focal motor deficits Results & Data Results & Data Vital Signs (Past 12 Hours) Vital Signs Temp Pulse Pulse Resp BP Pulse Ox O2 Del Method 07/24/25 15:55 36.5 C 81 18 126/80 95 Room Air 07/24/25 12:00 87 07/24/25 11:15 36.6 C 87 18 122/73 97 Room Air 07/24/25 08:00 83 07/24/25 07:58 36.6 C 80 18 132/82 93 Room Air Laboratory Results CBC, BMP, LFTs reviewed PG Care Time/CCT Total # of Minutes Spent Total Time Spent with Patient: Total time spent is greater than 50% in coordination of care (as documented) at patient's floor/unit and/or counseling patient: Coding Level of Care Code 62655 SUB INP/OBS CARE 235MIN Diagnoses CHANEL (acute kidney injury) N17.9 Hyponatremia E87.1 Anemia D64.9 Elevated LFTs R79.89
[2025-07-25 07:17] LABS: Total Volume Urine 2450.0 mL
[2025-07-25 07:53] LABS: Albumin Level 3.8 gm/dl (3.4-5.0); Anion Gap 13.0 (3-11); Blood Urea Nitrogen 42.0 mg/dl (6-23); Calcium 9.1 mg/dl (8.6-10.3); Carbon Dioxide 27.0 mmol/L (21-32); Chloride 98.0 mmol/L (98-107); Creatinine Clr Calc Pharmacy 16.6 ml/min; Glucose 98.0 mg/dl (70-99(Fasting)); Potassium 3.1 mmol/L (3.5-5.1); Sodium 138.0 mmol/L (136-145)
--- NOTE | 2025-07-25 08:26 | Nephrology Progress Note ---
Date of Service July 25, 2025 Assessment & Plan (1) CHANEL (acute kidney injury): Plan: * Nonoliguric CHANEL. Possibly dehydration in the setting of thiazide and ARB therapy. Urine sediment was acellular. 24-hour urine protein he is subnephrotic at 2.1 g. Renal ultrasound was negative for obstruction. Renal artery Doppler was negative for ANGELA. Serum and urine immunoelectrophoresis studies are pending. * Continue to hold losartan and chlorthalidone * Patient appears to be entering the recovery phase. UO 2.1 L last shift. Cr improved from 6.2 to 5.62 overnight * Volume status and electrolyte balance are acceptable. No acute indication for PATIENT REGISTRATION SPECIALIST at this time * Primary service has ordered KCl replacement * BMP in a.m. (2) Hypertension: Plan: * BP acceptable. Antihypertensives held. Low sodium diet. (3) Anemia: Plan: * Mild, asymptomatic anemia. * Immunoelectrophoresis studies are pending. (4) Elevated LFTs: Plan: * Improvement noted. Statin held. ETOH use potentially contributing. Followed by [facility] for CLD. (5) Alcohol use disorder: Plan: * Thiamine and folate replacement are being provided. Admission and Anticipated Discharge Date Admission Date: July 22, 2025 Subjective Mr. Brink was evaluated in his hospital room this morning. He was resting comfortably seated upright and denied fever, angina, dyspnea or uremic symptoms. He reports brisk urine output overnight. Review of Systems Constitutional: no fever Eyes: no problem reported Ear, Nose, Mouth, Throat: no problem reported Respiratory: no cough and no dyspnea Cardiovascular: no chest pain Gastrointestinal: no abdominal pain, no nausea, no vomiting and no diarrhea/loose stools Genitourinary: no hematuria or no flank pain Integumentary: no rash Physical Exam Constitutional: not in distress Eyes: PERRL, conjunctivae normal, anicteric sclerae ENMT: external ear and nose normal, oropharynx normal Neck: trachea midline, no thyromegaly Respiratory: normal respiratory effort, lungs clear to auscultation Cardiovascular: RRR, no murmur, no edema Gastrointestinal (Abdomen): normal bowel sounds, soft, nontender, no hepatosplenomegaly Musculoskeletal: Extremities: no cyanosis and no clubbing Skin: no rashes, warm and dry Neurologic: no focal motor deficits Results & Data Vital Signs (Past 12 Hours) Vital Signs Temp Pulse Pulse Resp BP Pulse Ox O2 Del Method 07/25/25 07:53 86 07/25/25 07:46 36.4 C L 74 16 115/74 93 Room Air 07/25/25 02:45 36.7 C 77 16 108/69 96 Room Air 07/24/25 22:44 36.6 C 87 16 119/77 96 Room Air 07/24/25 21:40 77 Laboratory Results Laboratory Results - last 24 hr 07/24/25 07/25/25 07/25/25 07:35 05:50 06:30 Sodium 138 138 Potassium 3.2 L 3.1 L Chloride 97 L 98 Carbon Dioxide 26 27 Anion Gap 15 H 13 H BUN 45 H 42 H Creatinine 6.16 H* D 5.62 H* D Est Cr Clr Drug Dosing 15.1 16.6 eGFR 9.08 10.14 BUN/Creatinine Ratio 7.3 L 7.5 L Glucose 105 H 98 Calcium 9.6 9.1 Phosphorus 3.8 Total Bilirubin 0.7 AST 30 ALT 31 Alkaline Phosphatase 125 H Total Protein 7.5 Albumin 4.0 3.8 Globulin 3.5 Albumin/Globulin Ratio 1.1 Urine Total Volume 2450 Ur Total Protein 24 Hr 2197.7 H Urine Total Protein 89.7 Urine Immunofixation Pending PG Care Time/CCT Total # of Minutes Spent Total Time Spent with Patient: 50 minutes provided to review progress notes, laboratory data, imaging results, urine sediment, immunoelectrophoresis results. Patient was interviewed and examined. POC discussed. AM laboratory studies ordered and chart updated. Coding Level of Care Code 38258 SUB INP/OBS CARE 3/50MIN Diagnoses CHANEL (acute kidney injury) N17.9 Hypertension I10 Anemia D64.9 Elevated LFTs R79.89 Alcohol use disorder F10.90
[2025-07-25] MEDS ORDERED: POTASSIUM CHLORIDE 10 MEQ TABCR PO STA (09:52)
[2025-07-25] MEDS ORDERED: Nursing to Pharmacy Communication SCH (13:15)
[2025-07-25] MEDS: POTASSIUM CHLORIDE 10 MEQ TABCR PO STA (13:22)
--- NOTE | 2025-07-25 14:02 | Hospitalist Progress Note ---
Date of Service July 25, 2025 Assessment & Plan (1) CHANEL (acute kidney injury): (2) Hyponatremia: (3) Anemia: (4) Elevated LFTs: Plan This patient is a 70-year-old male with a history of HTN, hyperlipidemia, prediabetes, early cirrhosis of the liver, and melanoma who presents to the ED at the direction of his outpatient GI provider who found him to have an acute kidney injury and mildly elevated LFTs on outpatient labs. He has been having some worsening fatigue over the last month which is why the labs were drawn. On admission, his creatinine was found to be elevated at 4.58, sodium mildly low at 133, with a mild macrocytic anemia, and mildly elevated AST and alkaline p hosphatase. His UA showed 2+ blood and 2+ protein but no RBCs or signs of infection. A renal ultrasound showed some renal cysts but otherwise normal. He is nonoliguric He is admitted for acute kidney injury. #Acute kidney injury/hyponatremia/hypokalemia-likely initially prerenal from chlorthalidone and ARB but with chronic use, now has led to ATN. Fortunately, other than some mild volume overload, he is not having any significant issues due to his CHANEL. He is nonoliguric, no hyperkalemia or acidosis. Sodium mildly low at 133 and now normalized. UA with blood and protein but no RBCs. 24-hour urine protein below the threshold of nephrotic syndrome at 2197 mg. CK normal. FeNa 2.6% on admission consistent with intrinsic renal failure. He does not have diabetes but does have HTN. No NSAID use. He has a family history of autoimmune disease with scleroderma and his sister. Renal ultrasound without evidence of obstruction. Renal Doppler negative. Appreciate nephrology consultation-etiology unclear differential includes ATN triggered by hemodynamic changes from chlorthalidone and losartan, AIN, or possible infiltrative disease or paraprotein. Creatinine continued to rise up to 6.16 and now starting to recover-down to 5.6. His potassium remains somewhat low despite cautious replacement at 3.1 - Continued stay on telemetry unit for arrhythmia monitoring-none thus far - Discontinued home chlorthalidone and losartan - Follow BMP again in the a.m. - Nephrology also ordered SIEP, FLC-pending - Likely will need renal biopsy if renal function not improving through the weekend although seems to be recovering now - Replace KCl 10 mEq p.o. x 1 - Continue low-sodium diet - He will need outpatient close follow-up with nephrology after discharge #Elevated LFTs/early cirrhosis of the liver-on admission, AST 46, alk phos 132- both of these have been elevated in the past and are better now than before. He does have a known history of early cirrhosis which he states he was unaware of but is seen by GI provider at [facility] every 3 months. He may have some cognitive impairment as he follows regularly with GI for his liver issues but does not recall this. He does drink 3 beers each day and is obese. Cirrhosis noted on abdominal ultrasound performed in 03/2025. Cirrhosis is like ly cause of the elevation of his LFTs. He is also on a statin drug, CK is negative. LFTs now normalized except for mild elevation of alkaline phosphatase. - encouraged him to abstain from alcohol - Follow LFTs - Follows with GI at [facility] as an outpatient-he is supposed to be getting a FibroSure scan and other HCC screening but has not followed through thus far - Continue to hold statin for now - He does seem to have some mild cognitive impairment-continue to monitor - Started folic acid 1 mg p.o. daily and thiamine 100 mg p.o. daily - Low-sodium diet #B12 deficiency anemia-hemoglobin low at 11-12, macrocytic. B12 quite low at 106. Iron studies consistent with chronic disease, folate and TSH are normal. Patient's macrocytosis likely due to alcohol use as well - Gave cyanocobalamin 1000 mcg IM daily x 3 days followed by 1000 mcg p.o. daily after that which should be continued on discharge - Strongly encouraged alcohol cessation #HTN/HLD-BPs here are normal - Stopped chlorthalidone and losartan as noted for CHANEL - Holding statin for elevated LFTs, but can likely be resumed as an outpatient #Prediabetes-he was told as an outpatient that with recent weight loss and exercise, he no longer has prediabetes. HgbA1c just barely in prediabetic range at 5.7% - No treatment for now - Continue low carbohydrate diet and weight loss at home DVT prophylaxis-SQ heparin Disposition-continued stay on telemetry unit, starting to improve, hopeful for discharge to home in the next 2-3 days if renal function continues to improve. Admission and Anticipated Discharge Date Admission Date: July 22, 2025 Subjective Patient feels well, no shortness of breath or fatigue. He has been ambulating the halls a little bit. He is making urine and moving his bowels. His is at the bedside and is concerned about his diagnosis of cirrhosis. We discussed the diagnosis and management of such. The patient states that he is just interested in what will happen in the next couple of days and when he can go home. Telemetry with normal sinus rhythm, rates in the 70s to 90s Physical Exam Constitutional: WD/WN, vitals as above Neck: trachea midline, no thyromegaly Respiratory: normal respiratory effort, lungs clear to auscultation Cardiovascular: Rate/Rhythm: regular rate and regular rhythm Heart Sounds: no murmur Extremities: + edema (Trace is pitting edema legs bilaterally left greater than right-improved) Chest (Breasts): Chest: normal inspection of chest Gastrointestinal (Abdomen): normal bowel sounds, soft, nontender, no hepatosplenomegaly Inspection/Auscultation: + abdomen abnormal to inspection (Reducible periumbilical hernia) Musculoskeletal: Extremities: extremities normal to inspection; no cyanosis and no clubbing Skin: no rashes, warm and dry Neurologic: moves all extremities and awake; no focal motor deficits Psychiatric: A+Ox3, euthymic affect Results & Data Results & Data Vital Signs (Past 12 Hours) Vital Signs Temp Pulse Pulse Resp BP Pulse Ox O2 Del Method 07/25/25 11:21 36.7 C 82 16 112/74 93 Room Air 07/25/25 07:53 86 07/25/25 07:46 36.4 C L 74 16 115/74 93 Room Air 07/25/25 02:45 36.7 C 77 16 108/69 96 Room Air Laboratory Results BMP, phosphorus, 24-hour urine protein reviewed PG Care Time/CCT Total # of Minutes Spent Total Time Spent with Patient: Total time spent is greater than 50% in coordination of care (as documented) at patient's floor/unit and/or counseling patient: Coding Level of Care Code 57404 SUB INP/OBS CARE 3/50MIN Diagnoses CAHNEL (acute kidney injury) N17.9 Hyponatremia E87.1 Anemia D64.9 Elevated LFTs R79.89
[2025-07-25 20:07] LABS: Appearance Urine Clear (Clear); Bacteria Urine Automated None Seen (None Seen); Cast Urine Automated 0-2 /lpf (0-2); Epithelial Cell Urine Auto 0-2 /hpf (0-2); Glucose Urine UA Trace (Negative); RBC Urine Automated 0-2 /hpf (0-2); WBC Urine Automated 0-5 /hpf (0-5)
[2025-07-26 08:15] LABS: Hematocrit (blood only) 35.3 % (42.0-52.0); Hemoglobin 12.2 g/dl (14.0-18.0); Mean Corpuscular Hemoglobin 36.0 pg (25.0-34.0); Mean Corpuscular Volume 104.1 fL (80.0-100.0); Platelet Count 206 K/uL (130-400); RDW Standard Deviation 47.6 fL (36.4-46.3); Red Blood Count 3.39 M/uL (4.70-6.10); White Blood Count 8.23 K/ul (4.8-10.8)
[2025-07-26 08:45] LABS: Alanine Aminotransferase 29.0 U/L (7-52); Albumin Globulin Ratio 1.1 (0.9-2); Albumin Level 4.1 gm/dl (3.4-5.0); Alkaline Phosphatase 130.0 U/L (34-104); Anion Gap 11.0 (3-11); Bilirubin,Total 0.6 mg/dl (0.2-1.0); Blood Urea Nitrogen 39.0 mg/dl (6-23); Calcium 9.6 mg/dl (8.6-10.3); Carbon Dioxide 30.0 mmol/L (21-32); Chloride 97.0 mmol/L (98-107); Creatinine Clr Calc Pharmacy 20.3 ml/min; Globulin 3.9 gm/dl (2.5-4.0); Glucose 113.0 mg/dl (70-99(Fasting)); Magnesium 1.8 mg/dl (1.7-2.4); Potassium 3.4 mmol/L (3.5-5.1); Sodium 138.0 mmol/L (136-145); Total Protein 8.0 gm/dl (6.0-8.3)
[2025-07-26] MEDS: CYANOCOBALAMIN (B-12) 500 MCG TABLET PO SCH (09:01)
--- NOTE | 2025-07-26 09:06 | Hospitalist Progress Note ---
Date of Service July 26, 2025 Assessment & Plan (1) CHANEL (acute kidney injury): (2) Hyponatremia: (3) Anemia: (4) Elevated LFTs: Plan This patient is a 70-year-old male with a history of HTN, hyperlipidemia, prediabetes, early cirrhosis of the liver, and melanoma who presents to the ED at the direction of his outpatient GI provider who found him to have an acute kidney injury and mildly elevated LFTs on outpatient labs. He has been having some worsening fatigue over the last month which is why the labs were drawn. On admission, his creatinine was found to be elevated at 4.58, sodium mildly low at 133, with a mild macrocytic anemia, and mildly elevated AST and alkaline p hosphatase. His UA showed 2+ blood and 2+ protein but no RBCs or signs of infection. A renal ultrasound showed some renal cysts but otherwise normal. He is nonoliguric He is admitted for acute kidney injury. #Acute kidney injury/hyponatremia/hypokalemia-likely initially prerenal from chlorthalidone and ARB but with chronic use, now has led to ATN. Fortunately, other than some mild volume overload, he is not having any significant issues due to his CHANEL. He is nonoliguric, no hyperkalemia or acidosis. Sodium mildly low at 133 and now normalized. UA with blood and protein but no RBCs. 24-hour urine protein below the threshold of nephrotic syndrome at 2197 mg. CK normal. FeNa 2.6% on admission consistent with intrinsic renal failure. He does not have diabetes but does have HTN. No NSAID use. He has a family history of autoimmune disease with scleroderma and his sister. Renal ultrasound without evidence of obstruction. Renal Doppler negative. Appreciate nephrology consultation-etiology unclear differential includes ATN triggered by hemodynamic changes from chlorthalidone and losartan, AIN, or possible infiltrative disease or paraprotein. Creatinine continued to rise up to 6.16 and now starting to recover-down to 4.6 on 07/26. - Move to med/surg today - Discontinued home chlorthalidone and losartan - Follow BMP again in the a.m. - Nephrology also ordered SIEP, FLC-pending - Initially planned for renal biopsy, but I think not likely needed at this time. Defer to nephrology. - Continue low-sodium diet - He will need outpatient close follow-up with nephrology after discharge #Elevated LFTs/early cirrhosis of the liver-on admission, AST 46, alk phos 132- both of these have been elevated in the past and are better now than before. He does have a known history of early cirrhosis which he states he was unaware of but is seen by GI provider at [facility] every 3 months. He may have some cognitive impairment as he follows regularly with GI for his liver issues but does not recall this. He does drink 3 beers each day and is obese. Cirrhosis noted on abdominal ultrasound performed in 03/2025. Cirrhosis is likely cause of the elevation of his LFTs. He is also on a statin drug, CK is negative. LFTs now normalized except for mild elevation of alkaline phosphatase. - Encouraged him to abstain from alcohol - Follow LFTs - Follows with GI at [facility] as an outpatient-he is supposed to be getting a FibroSure scan and other HCC screening but has not followed through thus far - Continue to hold statin for now - He does seem to have some mild cognitive impairment-continue to monitor - Started folic acid 1 mg p.o. daily and thiamine 100 mg p.o. daily - Low-sodium diet #B12 deficiency anemia-hemoglobin low at 11-12, macrocytic. B12 quite low at 106. Iron studies consistent with chronic disease, folate and TSH are normal. Patient's macrocytosis likely due to alcohol use as well - Gave cyanocobalamin 1000 mcg IM daily x 3 days followed by 1000 mcg p.o. daily after that which should be continued on discharge - Strongly encouraged alcohol cessation #HTN/HLD-BPs here are normal - Stopped chlorthalidone and losartan as noted for CHANEL - Holding statin for elevated LFTs, but can likely be resumed as an outpatient #Prediabetes-he was told as an outpatient that with recent weight loss and exercise, he no longer has prediabetes. HgbA1c just barely in prediabetic range at 5.7% - No treatment for now - Continue low carbohydrate diet and weight loss at home DVT prophylaxis-SQ heparin Disposition- Hopeful for discharge to home in the next 2-3 days if renal function continues to improve. Admission and Anticipated Discharge Date Admission Date: July 22, 2025 Subjective Doing well today. No shortness of breath. No pain. Feels well overall. No overnight events. Review of Systems Review of Systems: All systems reviewed & are unremarkable except as noted in Subjective Physical Exam Constitutional: WD/WN, vitals as above ENMT: external ear and nose normal, oropharynx normal Neck: trachea midline, no thyromegaly Respiratory: normal respiratory effort, lungs clear to auscultation Cardiovascular: Rate/Rhythm: regular rate and regular rhythm Heart Sounds: no murmur Gastrointestinal (Abdomen): normal bowel sounds, soft, nontender, no hep atosplenomegaly Musculoskeletal: Extremities: extremities normal to inspection; no cyanosis and no clubbing Skin: no rashes, warm and dry Neurologic: moves all extremities and awake; no focal motor deficits Psychiatric: A+Ox3, euthymic affect Results & Data Results & Data Vital Signs (Past 12 Hours) Vital Signs Temp Pulse Pulse Resp BP Pulse Ox O2 Del Method 07/26/25 07:48 36.9 C 61 16 114/84 95 Room Air 07/26/25 07:02 77 07/26/25 02:21 36.7 C 77 16 121/76 96 Room Air 07/25/25 23:02 36.8 C 79 18 131/76 93 Room Air 07/25/25 21:55 72 PG Care Time/CCT Total # of Minutes Spent Total Time Spent with Patient: Total time spent is greater than 50% in coordination of care (as documented) at patient's floor/unit and/or counseling patient: Coding Level of Care Code 06921 SUB INP/OBS CARE 2/35MIN Diagnoses CHANEL (acute kidney injury) N17.9 Hyponatremia E87.1 Anemia D64.9 Elevated LFTs R79.89
--- NOTE | 2025-07-26 09:09 | Nephrology Progress Note ---
Date of Service July 26, 2025 Assessment & Plan (1) CHANEL (acute kidney injury): Plan: * Nonoliguric CHANEL. Possibly dehydration in the setting of thiazide and ARB therapy. Urine sediment was acellular. 24-hour urine protein he is subnephrotic at 2.1 g. Renal ultrasound was negative for obstruction. Renal artery Doppler was negative for ANGELA. Serum and urine immunoelectrophoresis studies are pending. * Continue to hold losartan and chlorthalidone * Patient appears to be entering the recovery phase. UO 2.1 L last 24 hrs. Cr improved from 6.2-->5.6-->4.5 over last 48 hrs * Volume status and electrolyte balance are acceptable. No acute indication for VARIETY PERFORMER at this time * Serum K 3.4. Will provide 10 mEq KCl this am * BMP in a.m. (2) Hypertension: Plan: * BP acceptable. Antihypertensives held. Low sodium diet. (3) Anemia: Plan: * Mild, asymptomatic anemia. * Immunoelectrophoresis studies are pending. (4) Elevated LFTs: Plan: * Improvement noted. Statin held. ETOH use potentially contributing. Followed by [facility] for CLD. (5) Alcohol use disorder: Plan: * Thiamine and folate replacement are being provided. Admission and Anticipated Discharge Date Admission Date: July 22, 2025 Subjective Mr. Brink was evaluated in his hospital room this morning. He was resting comfortably seated upright and denied fever, angina, dyspnea or uremic symptoms. He reports brisk urine output overnight. Review of Systems Constitutional: no fever Eyes: no problem reported Ear, Nose, Mouth, Throat: no problem reported Respiratory: no cough and no dyspnea Cardiovascular: no chest pain Gastrointestinal: no abdominal pain, no nausea, no vomiting and no diarrhea/loose stools Genitourinary: no hematuria or no flank pain Integumentary: no rash Physical Exam Constitutional: not in distress Eyes: PERRL, conjunctivae normal, anicteric sclerae ENMT: external ear and nose normal, oropharynx normal Neck: trachea midline, no thyromegaly Respiratory: normal respiratory effort, lungs clear to auscultation Cardiovascular: RRR, no murmur, no edema Gastrointestinal (Abdomen): normal bowel sounds, soft, nontender, no hepatosplenomegaly Musculoskeletal: Extremities: no cyanosis and no clubbing Skin: no rashes, warm and dry Neurologic: no focal motor deficits Results & Data Vital Signs (Past 12 Hours) Vital Signs Temp Pulse Pulse Resp BP Pulse Ox O2 Del Method 07/26/25 07:48 36.9 C 61 16 114/84 95 Room Air 07/26/25 07:02 77 07/26/25 02:21 36.7 C 77 16 121/76 96 Room Air 07/25/25 23:02 36.8 C 79 18 131/76 93 Room Air 07/25/25 21:55 72 Laboratory Results Laboratory Results - last 24 hr 07/25/25 07/26/25 07/26/25 19:45 07:35 07:36 WBC 8.23 RBC 3.39 L Hgb 12.2 L Hct 35.3 L MCV 104.1 H MCH 36.0 H MCHC 34.6 RDW Std Deviation 47.6 H RDW Coeff of [place] 12.4 Plt Count 206 MPV 9.6 Sodium 138 Potassium 3.4 L Chloride 97 L Carbon Dioxide 30 Anion Gap 11 BUN 39 H Creatinine 4.58 H* D Est Cr Clr Drug Dosing 20.3 eGFR 12.96 BUN/Creatinine Ratio 8.5 L Glucose 113 H Calcium 9.6 Magnesium 1.8 Total Bilirubin 0.6 AST 36 ALT 29 Alkaline Phosphatase 130 H Total Protein 8.0 Albumin 4.1 Globulin 3.9 Albumin/Globulin Ratio 1.1 Urine Color Yellow Urine Appearance Clear Urine pH 5.5 Ur Specific [place] 1.011 Urine Protein 1+ H Urine Glucose (UA) Trace H Urine Ketones Negative Urine Blood 1+ H Urine Nitrite Negative Urine Bilirubin Negative Urine Urobilinogen Negative Ur Leukocyte Esterase Negative Urine WBC (Auto) 0-5 Urine RBC (Auto) 0-2 U Hyaline Cast (Auto) 0-2 U Epithel Cells (Auto) 0-2 Urine Bacteria (Auto) None Seen PG Care Time/CCT Total # of Minutes Spent Total Time Spent with Patient: 50 minutes provided to review progress notes, laboratory data, immunoelectrophoresis results. Patient was interviewed and examined. POC discussed. KCl supplement ordered. AM laboratory studies ordered and chart updated. Coding Level of Care Code 27392 SUB INP/OBS CARE 3/50MIN Diagnoses CHANEL (acute kidney injury) N17.9 Hypertension I10 Anemia D64.9 Elevated LFTs R79.89 Alcohol use disorder F10.90
[2025-07-26] MEDS: POTASSIUM CHLORIDE 10 MEQ TABCR PO ONE (11:50)
[2025-07-27 08:04] LABS: Hematocrit (blood only) 37.2 % (42.0-52.0); Hemoglobin 12.6 g/dl (14.0-18.0); Mean Corpuscular Hemoglobin 35.6 pg (25.0-34.0); Mean Corpuscular Volume 105.1 fL (80.0-100.0); Platelet Count 227 K/uL (130-400); RDW Standard Deviation 48.2 fL (36.4-46.3); Red Blood Count 3.54 M/uL (4.70-6.10); White Blood Count 8.71 K/ul (4.8-10.8)
[2025-07-27 08:19] LABS: Anion Gap 11.0 (3-11); Blood Urea Nitrogen 36.0 mg/dl (6-23); Calcium 9.7 mg/dl (8.6-10.3); Carbon Dioxide 29.0 mmol/L (21-32); Chloride 96.0 mmol/L (98-107); Creatinine Clr Calc Pharmacy 24.5 ml/min; Glucose 112.0 mg/dl (70-99(Fasting)); Potassium 3.3 mmol/L (3.5-5.1); Sodium 136.0 mmol/L (136-145)
[2025-07-27 08:39] LABS: Appearance Urine Clear (Clear); Bacteria Urine Automated None Seen (None Seen); Cast Urine Automated 0-2 /lpf (0-2); Epithelial Cell Urine Auto 0-2 /hpf (0-2); Glucose Urine UA Negative (Negative); RBC Urine Automated 0-2 /hpf (0-2); WBC Urine Automated 0-5 /hpf (0-5)
--- NOTE | 2025-07-27 08:54 | Nephrology Progress Note ---
Date of Service July 27, 2025 Assessment & Plan (1) CHANEL (acute kidney injury): Plan: * Nonoliguric CHANEL. Possibly dehydration in the setting of thiazide and ARB therapy. Urine sediment was acellular. 24-hour urine protein he is subnephrotic at 2.1 g. Renal ultrasound was negative for obstruction. Renal artery Doppler was negative for ANGELA. Serum and urine immunoelectrophoresis studies are pending. * Continue to hold losartan and chlorthalidone * Patient is in the recovery phase of CHANEL. UO 600cc last 24 hrs. Cr improved from 6.2-->5.6-->4.5-->3.81 over last 72 hrs * Volume status and electrolyte balance are acceptable * Explained to patient today that EGFR remains only 16 cc/min. Ideally would like to see Cr 3.0 or less prior to discharge to ensure that he will not develop electrolyte disorder or volume overload that could result in rehospitalization * Serum K 3.3. Will provide 20 mEq KCl this am * BMP in a.m. (2) Hypertension: Plan: * BP acceptable. Antihypertensives held. Low sodium diet. (3) Anemia: Plan: * Mild, asymptomatic anemia. * Immunoelectrophoresis studies are pending. (4) Elevated LFTs: Plan: * Improvement noted. Statin held. ETOH use potentially contributing. Followed by [facility] for CLD. (5) Alcohol use disorder: Plan: * Thiamine and folate replacement are being provided. Admission and Anticipated Discharge Date Admission Date: July 22, 2025 Subjective Mr. Brink was evaluated in his hospital room this morning. He was resting comfortably seated upright and denied fever, angina, dyspnea or uremic symptoms. He is anxious to leave the hospital Review of Systems Constitutional: no fever Eyes: no problem reported Ear, Nose, Mouth, Throat: no problem reported Respiratory: no cough and no dyspnea Cardiovascular: no chest pain Gastrointestinal: no abdominal pain, no nausea, no vomiting and no diarrhea/loose stools Genitourinary: no hematuria or no flank pain Integumentary: no rash Physical Exam Constitutional: not in distress Eyes: PERRL, conjunctivae normal, anicteric sclerae ENMT: external ear and nose normal, oropharynx normal Neck: trachea midline, no thyromegaly Respiratory: normal respiratory effort, lungs clear to auscultation Cardiovascular: RRR, no murmur, no edema Gastrointestinal (Abdomen): normal bowel sounds, soft, nontender, no hepatosplenomegaly Musculoskeletal: Extremities: no cyanosis and no clubbing Skin: no rashes, warm and dry Neurologic: no focal motor deficits Results & Data Vital Signs (Past 12 Hours) Vital Signs Temp Pulse Pulse Resp BP Pulse Ox O2 Del Method 07/27/25 07:49 36.5 C 71 16 128/79 98 Room Air 07/27/25 07:26 77 07/27/25 04:01 36.7 C 79 16 123/76 97 Room Air 07/26/25 23:38 37 C 65 18 110/72 95 Room Air 07/26/25 22:03 75 Laboratory Results Laboratory Results - last 24 hr 07/27/25 07/27/25 07/27/25 07:41 08:12 08:20 WBC 8.71 RBC 3.54 L Hgb 12.6 L Hct 37.2 L MCV 105.1 H MCH 35.6 H MCHC 33.9 RDW Std Deviation 48.2 H RDW Coeff of [place] 12.3 Plt Count 227 MPV 9.4 Sodium 136 Potassium 3.3 L Chloride 96 L Carbon Dioxide 29 Anion Gap 11 BUN 36 H Creatinine 3.81 H D Est Cr Clr Drug Dosing 24.5 eGFR 16.16 BUN/Creatinine Ratio 9.4 L Glucose 112 H Calcium 9.7 Ammonia 24.0 Urine Color Yellow Urine Appearance Clear Urine pH 5.5 Ur Specific [place] 1.010 Urine Protein 1+ H Urine Glucose (UA) Negative Urine Ketones Negative Urine Blood 1+ H Urine Nitrite Negative Urine Bilirubin Negative Urine Urobilinogen Negative Ur Leukocyte Esterase Negative Urine WBC (Auto) 0-5 Urine RBC (Auto) 0-2 U Hyaline Cast (Auto) 0-2 U Epithel Cells (Auto) 0-2 Urine Bacteria (Auto) None Seen Ur Random Creatinine Pending U Random Total Protein Pending Protein/Creatinin Ratio Pending PG Care Time/CCT Total # of Minutes Spent Total Time Spent with Patient: 50 minutes provided to review progress notes, laboratory data, urine sediment, immunoelectrophoresis results. Patient was interviewed and examined. POC discussed. KCl supplement ordered, AM laboratory studies ordered and chart updated. Coding Level of Care Code 85772 SUB INP/OBS CARE 3/50MIN Diagnoses CHANEL (acute kidney injury) N17.9 Hypertension I10 Anemia D64.9 Elevated LFTs R79.89 Alcohol use disorder F10.90
[2025-07-27] MEDS: ROSUVASTATIN CALCIUM 20 MG TAB PO SCH (11:06)
[2025-07-27] MEDS: POTASSIUM CHLORIDE CRTAB 20 MEQ TABCR PO ONE (11:09)
--- NOTE | 2025-07-27 13:26 | Hospitalist Progress Note ---
Date of Service July 27, 2025 Assessment & Plan (1) CHANEL (acute kidney injury): (2) Hyponatremia: (3) Anemia: (4) Elevated LFTs: Plan Plan This patient is a 70-year-old male with a history of HTN, hyperlipidemia, prediabetes, early cirrhosis of the liver, and melanoma who presents to the ED at the direction of his outpatient GI provider who found him to have an acute kidney injury and mildly elevated LFTs on outpatient labs. He has been having some worsening fatigue over the last month which is why the labs were drawn. On admission, his creatinine was found to be elevated at 4.58, sodium mildly low at 133, with a mild macrocytic anemia, and mildly elevated AST and alkaline phosphatase. His UA showed 2+ blood and 2+ protein but no RBCs or signs of infection. A renal ultrasound showed some renal cysts but otherwise normal. He is nonoliguric He is admitted for acute kidney injury. #Acute kidney injury/hyponatremia/hypokalemia-likely initially prerenal from chlorthalidone and ARB but with chronic use, now has led to ATN. Sodium mildly low at 133 on admission, now wnl. Fortunately, other than some mild volume overload, he is not having any significant issues due to his CHANEL. He is nonoliguric, no hyperkalemia or acidosis. UA with blood and protein but no RBCs. 24-hour urine protein below the threshold of nephrotic syndrome at 2197 mg. CK normal. FeNa 2.6% on admission consistent with intrinsic renal failure. He does not have diabetes but does have HTN. No NSAID use. He has a family history of autoimmune disease with scleroderma and his sister. Renal ultrasound without evidence of obstruction. Renal Doppler negative. Appreciate nephrology consultation- etiology unclear differential includes ATN triggered by hemodynamic changes from chlorthalidone and losartan, AIN, or possible infiltrative disease or paraprotein. - creatinine continues to improve, was slowing increasing, reaching peak 6.6, continues to recover. now 4.58 --> 3.81. - chlorthalidone and losartan continue to hold ; pressures have been stable, can consider BB or CCB if needed for hypertension during admission - continue trending BMP qAM - nephrology consulted and following : K+ 3.3, repleted with 20 mEq KCl this AM. Other electrolytes stable. Would like a goal Cr <3.0 prior to discharge. - Continue low-sodium diet - He will need outpatient close follow-up with nephrology after discharge #Elevated LFTs/early cirrhosis of the liver-on admission, AST 46, alk phos 132- both of these have been elevated in the past and are better now than before. He does have a known history of early cirrhosis which he states he was unaware of but is seen by GI provider at [facility] every 3 months. He may have some cognitive impairment as he follows regularly with GI for his liver issues but does not recall this. He does drink 3 beers each day and is obese. Cirrhosis noted on abdominal ultrasound performed in 03/2025. Cirrhosis is likely cause of the elevation of his LFTs. He is also on a statin drug, CK is negative. LFTs now normalized except for mild elevation of alkaline phosphatase. - Encouraged him to abstain from alcohol - Follow LFTs. AST & ALT continue to downtrend, now 36 & 29, respectfully. Alk phos 130. - will plan to resume rosuvastatin at low dose - 20mg daily, continue to trend LFTs, however does seem to be chronically elevated for him. - Follows with GI at [facility] as an outpatient-he is supposed to be getting a FibroSure scan and other HCC screening but has not followed through thus far - He does seem to have some mild cognitive impairment-continue to monitor; ammonia level wnl. - Started folic acid 1 mg p.o. daily and thiamine 100 mg p.o. daily - Low-sodium diet #B12 deficiency anemia-hemoglobin low at 11-12, macrocytic. B12 quite low at 106. Iron studies consistent with chronic disease, folate and TSH are normal. Patient's macrocytosis likely due to alcohol use as well - Gave cyanocobalamin 1000 mcg IM daily x 3 days followed by 1000 mcg p.o. daily after that which should be continued on discharge - Strongly encouraged alcohol cessation #HTN/HLD-BPs here are normal - Stopped chlorthalidone and losartan as noted for CHANEL - resumed statin as above - pressures stable, as noted above. continue to monitor. #Prediabetes-he was told as an outpatient that with recent weight loss and exercise, he no longer has prediabetes. HgbA1c just barely in prediabetic range at 5.7% - No treatment for now - Continue low carbohydrate diet and weight loss at home DVT prophylaxis-SQ heparin Disposition- Hopeful for discharge to home tomorrow if renal function continue to improve. Goal creatinine <3.0; Admission and Anticipated Discharge Date Admission Date: July 22, 2025 Subjective seen and examined at bedside this morning. He is awake, alert, sitting in bedside chair. No acute distress. No overnight events. No concerns this morning. Patient a bit upset this morning as he is feeling well and is ready to go home. Discussed with patient that creatinine is not at goal of <3, therefore would not feel comfort discharging until further downtrend. Tolerating PO without concern. Ambulating well. Denies N/V/abdominal pain. Denies chest pain, SOB. Review of Systems Review of Systems: as per hpi Physical Exam Constitutional: WD/WN, vitals as above Respiratory: normal respiratory effort, lungs clear to auscultation Cardiovascular: RRR, no murmur, no edema Gastrointestinal (Abdomen): normal bowel sounds, soft, nontender, no hepatosplenomegaly Musculoskeletal: Extremities: extremities normal to inspection Skin: no rashes, warm and dry Neurologic: no acute focal neurological deficits Psychiatric: A+Ox3, euthymic affect Results & Data Results & Data Vital Signs (Past 12 Hours) Vital Signs Temp Pulse Pulse Resp BP Pulse Ox O2 Del Method 07/27/25 11:19 36.6 C 84 16 117/69 96 Room Air 07/27/25 07:49 36.5 C 71 16 128/79 98 Room Air 07/27/25 07:26 77 07/27/25 04:01 36.7 C 79 16 123/76 97 Room Air
[2025-07-27 16:10] LABS: Protein Creatinine Ratio Urine 0.7 (0-0.2); Total Protein Urine Random 67.2 mg/dl (0-11.9)
[2025-07-28 06:18] LABS: Hematocrit (blood only) 36.3 % (42.0-52.0); Hemoglobin 12.4 g/dl (14.0-18.0); Mean Corpuscular Hemoglobin 35.2 pg (25.0-34.0); Mean Corpuscular Volume 103.1 fL (80.0-100.0); Platelet Count 229 K/uL (130-400); RDW Standard Deviation 46.4 fL (36.4-46.3); Red Blood Count 3.52 M/uL (4.70-6.10); White Blood Count 8.86 K/ul (4.8-10.8)
[2025-07-28 06:38] LABS: Anion Gap 10.0 (3-11); Blood Urea Nitrogen 36.0 mg/dl (6-23); Calcium 9.6 mg/dl (8.6-10.3); Carbon Dioxide 30.0 mmol/L (21-32); Chloride 99.0 mmol/L (98-107); Creatinine Clr Calc Pharmacy 26.6 ml/min; Glucose 127.0 mg/dl (70-99(Fasting)); Potassium 3.7 mmol/L (3.5-5.1); Sodium 139.0 mmol/L (136-145)
[2025-07-28 07:58] VITALS: PULSE 84; RESP 20; TEMP 98.1; O2SAT 93
--- NOTE | 2025-07-28 08:58 | Nephrology Progress Note ---
Date of Service July 28, 2025 Assessment & Plan (1) CHANEL (acute kidney injury): Plan: * Nonoliguric CHANEL. Possibly dehydration in the setting of thiazide and ARB therapy. Urine sediment was acellular. 24-hour urine protein he is subnephrotic at 2.1 g. Renal ultrasound was negative for obstruction. Renal artery Doppler was negative for ANGELA. Serum and urine immunoelectrophoresis studies are pending. * Continue to hold losartan and chlorthalidone * Patient is in the recovery phase of CHANEL. UO 600cc last 24 hrs. Cr improved from 6.2-->5.6-->4.5-->3.81-->3.5 over last 4 days * Volume status and electrolyte balance remain acceptable * Patient requests discharge to home. We have reviewed a low K diet and need to avoid NSAIDS/alcohol. He declined consultation w/ dietitian. I advised patient to remain off losartan and chlorthalidone until assessed by nephrology as outpatient. I have placed order in EMR for BMP, CBC, urinalysis w/ microscopy and MACR to be completed in 1 week. I have tasked my antisubmarine weapons officer staff to schedule nephrology follow up w/ Dr. Sullivan in 10-14 days. I advised patient to return to the hospital if he develops flank pain, hematuria, foamy urine, uremic symptoms or difficulty voiding. Primary service was updated re garding discharge plans. (2) Hypertension: Plan: * BP acceptable. Antihypertensives held. Low sodium diet. (3) Anemia: Plan: * Mild, asymptomatic anemia. * 07/25/25 UIEP negative for monoclonal band (4) Elevated LFTs: Plan: * Improvement noted. Statin held. ETOH use potentially contributing. Followed by [facility] for CLD. (5) Alcohol use disorder: Plan: * Encouraged abstinence Admission and Anticipated Discharge Date Admission Date: July 22, 2025 Subjective Mr. Brink was evaluated in his hospital room this morning. He was resting comfortably seated upright and denied fever, angina, dyspnea or uremic symptoms. He is anxious to leave the hospital Review of Systems Constitutional: no fever Eyes: no problem reported Ear, Nose, Mouth, Throat: no problem reported Respiratory: no cough and no dyspnea Cardiovascular: no chest pain Gastrointestinal: no abdominal pain, no nausea, no vomiting and no diarrhea/loose stools Genitourinary: no hematuria or no flank pain Integumentary: no rash Physical Exam Constitutional: not in distress Eyes: PERRL, conjunctivae normal, anicteric sclerae ENMT: external ear and nose normal, oropharynx normal Neck: trachea midline, no thyromegaly Respiratory: normal respiratory effort, lungs clear to auscultation Cardiovascular: RRR, no murmur, no edema Gastrointestinal (Abdomen): normal bowel sounds, soft, nontender, no hepatosplenomegaly Musculoskeletal: Extremities: no cyanosis and no clubbing Skin: no rashes, warm and dry Neurologic: no focal motor deficits Results & Data Vital Signs (Past 12 Hours) Vital Signs Temp Pulse Pulse Resp BP Pulse Ox O2 Del Method 07/28/25 07:57 36.7 C 84 20 129/68 93 Room Air 07/28/25 07:37 85 07/28/25 02:37 36.6 C 91 H 16 122/77 96 Room Air 07/27/25 22:44 36.7 C 79 18 147/84 H 97 Room Air 07/27/25 21:46 80 Laboratory Results Laboratory Results - last 24 hr 07/25/25 07/27/25 07/28/25 05:50 08:12 05:47 WBC 8.86 RBC 3.52 L Hgb 12.4 L Hct 36.3 L MCV 103.1 H MCH 35.2 H MCHC 34.2 RDW Std Deviation 46.4 H RDW Coeff of [place]je[place] 12.3 Plt Count 229 MPV 9.3 L Sodium 139 Potassium 3.7 Chloride 99 Carbon Dioxide 30 Anion Gap 10 BUN 36 H Creatinine 3.50 H D Est Cr Clr Drug Dosing 26.6 eGFR 17.89 BUN/Creatinine Ratio 10.3 Glucose 127 H Calcium 9.6 Ur Random Creatinine 100.0 U Random Total Protein 67.2 H Protein/Creatinin Ratio 0.7 H Urine Immunofixation SEE NOTE Diagnostic Findings 07/25/25 UIEP: Normal pattern. No monoclonal proteins detected. PG Care Time/CCT Total # of Minutes Spent Total Time Spent with Patient: 50 minutes provided to review progress notes, laboratory data, immunoelectrophoresis results, interview and examine patient, discuss lab results, discuss low K diet and avoiding NSAIDS/EtOH, coordinate outpatient testing and follow-up, update primary service, update medical record. Coding Level of Care Code 70362 SUB INP/OBS CARE 3/50MIN Diagnoses CHANEL (acute kidney injury) N17.9 Hypertension I10 Anemia D64.9 Elevated LFTs R79.89 Alcohol use disorder F10.90
--- NOTE | 2025-07-28 10:21 | Discharge Summary ---
Date of Service July 28, 2025 Admission HPI Per Admitting Provider This patient is a 70-year-old male with a history of HTN, hyperlipidemia, prediabetes, cirrhosis of the liver, and melanoma who presents to the ED at the direction of his PCP who found him to have an acute kidney injury and mildly elevated LFTs on outpatient labs. He has been having some worsening fatigue over the last month which is why the labs were drawn. He reports he typically walks 1 mile every day and noticed for the last month that he is only able to walk about three quarters of a mile before becoming fatigued. He denies chest pain or shortness of breath. He has also had some occasional lightheadedness with standing recently. He denies any significant abdominal distention. He does report some chronic swelling of the legs which was worse in February hence why he was placed on chlorthalidone and losartan for elevated blood pressure at that time. He denies any flank pain or abdominal pain, denies blood in the urine. No nausea/vomiting or diarrhea. He is making urine and otherwise feeling well. In the ED, his creatinine was found to be elevated at 4.58, sodium mildly low at 133, with a mild macrocytic anemia, and mildly elevated AST and alkaline phosphatase. His UA showed 2+ blood and 2+ protein but no RBCs or signs of infection. A renal ultrasound showed some renal cysts but otherwise normal. He will be admitted for acute kidney injury. Admission Exam Per Admitting Provider Constitutional: WD/WN, vitals as above Eyes: PERRL, conjunctivae normal, anicteric sclerae ENMT: external ear and nose normal, oropharynx normal Neck: trachea midline, no thyromegaly Respiratory: normal respiratory effort, lungs clear to auscultation Cardiovascular: Rate/Rhythm: regular rate and regular rhythm Heart Sounds: no murmur Extremities: + edema (1+ pitting edema legs bilaterally left greater than right) Chest (Breasts): Chest: normal inspection of chest Gastrointestinal (Abdomen): normal bowel sounds, soft, nontender, no hepatosplenomegaly Inspection/Auscultation: + abdomen abnormal to inspection (Reducible periumbilical hernia) Musculoskeletal: Extremities: extremities normal to inspection; no cyanosis and no clubbing Skin: no rashes, warm and dry Neurologic: moves all extremities and awake; no focal motor deficits Psychiatric: A+Ox3, euthymic affect Principal Diagnosis acute kidney injury Discharge Exam Constitutional WD/WN, vitals as above Respiratory normal respiratory effort, lungs clear to auscultation Cardiovascular RRR, no murmur, no edema Gastrointestinal (Abdomen) normal bowel sounds, soft, nontender, no hepatosplenomegaly Musculoskeletal Extremities: extremities normal to inspection Skin no rashes, warm and dry Psychiatric A+Ox3, euthymic affect Discharge Data Allergies Allergy/AdvReac Type Severity Reaction Status Date / Time cyclobenzaprine Allergy Unknown "FEELS Verified 12/19/23 09:33 [From Flexeril] DRUNK WITH MUSCLE RELAXERS" Consultations 07/22/25 15:14 ED Decision to Admit Stat 07/22/25 17:03 Consult Nephrology Routine Ordered Studies 07/22/25 15:10 US Renal Bladder [US renal/blad retro comp] Stat 07/23/25 08:15 US doppler renal [US duplex renal art/vein BI] Urgent Hospital Course (1) CHANEL (acute kidney injury): (2) Hyponatremia: (3) Anemia: (4) Elevated LFTs: Plan This patient is a 70-year-old male with a history of HTN, hyperlipidemia, prediabetes, early cirrhosis of the liver, and melanoma who presents to the ED at the direction of his outpatient GI provider who found him to have an acute kidney injury and mildly elevated LFTs on outpatient labs. He has been having some worsening fatigue over the last month which is why the labs were drawn. On admission, his creatinine was found to be elevated at 4.58, sodium mildly low at 133, with a mild macrocytic anemia, and mildly elevated AST and alkaline phosp hatase. His UA showed 2+ blood and 2+ protein but no RBCs or signs of infection. A renal ultrasound showed some renal cysts but otherwise normal. He is nonoliguric He is admitted for acute kidney injury. #Acute kidney injury/hyponatremia/hypokalemia-likely initially prerenal from chlorthalidone and ARB but with chronic use, now has led to ATN. Sodium mildly low at 133 on admission, now wnl. Fortunately, other than some mild volume overload, he is not having any significant issues due to his CHANEL. He is nonoliguric, no hyperkalemia or acidosis. UA with blood and protein but no RBCs. 24-hour urine protein below the threshold of nephrotic syndrome at 2197 mg. CK normal. FeNa 2.6% on admission consistent with intrinsic renal failure. He does not have diabetes but does have HTN. No NSAID use. He has a family history of autoimmune disease with scleroderma and his sister. Renal ultrasound without evidence of obstruction. Renal Doppler negative. Appreciate nephrology consultation- etiology unclear differential includes ATN triggered by hemodynamic changes from chlorthalidone and losartan, AIN, or possible infiltrative disease or paraprotein. - creatinine continues to improve, was slowing increasing, reaching peak 6.6, continues to recover. now 3.81 --> 3.5. Per nephrology, kidney function is improving at appropriate rate and comfortable for discharge. - hold chlorthalidone and losartan. Plan to continue holding these medications until seen in follow-up by PCP and nephrology. Blood pressures have been controlled without intervention during admission, therefore we feel comfortable discharging patient without new or additional antihypertensive. Can discuss further management as needed with PCP. - Continue low-sodium diet. Avoid nephrotoxic drugs including NSAIDs #Elevated LFTs/early cirrhosis of the liver-on admission, AST 46, alk phos 132- both of these have been elevated in the past and are better now than before. He does have a known history of early cirrhosis but is seen by GI provider at [facility] every 3 months. He does drink 3 beers each day and is obese. Cir rhosis noted on abdominal ultrasound performed in 03/2025. Cirrhosis is likely cause of the elevation of his LFTs. He is also on a statin drug, CK is negative. LFTs now normalized except for mild elevation of alkaline phosphatase. - Encouraged him to abstain from alcohol. - Follow LFTs with PCP after discharge. - home rosuvastatin dose held during admission. Restart medication at lower dose, now rosuvastatin 20 mg daily. (previously rosuvastatin 40 mg) - Follows with GI at [facility] as an outpatient-he is supposed to be getting a FibroSure scan and other HCC screening but has not followed through thus far - He does seem to have some mild cognitive impairment-continue to monitor; ammonia level wnl. - Started folic acid 1 mg p.o. daily and thiamine 100 mg p.o. daily - Low-sodium diet #B12 deficiency anemia-hemoglobin low at 11-12, macrocytic. B12 quite low at 106. Iron studies consistent with chronic disease, folate and TSH are normal. Patient's macrocytosis likely due to alcohol use as well - Gave cyanocobalamin 1000 mcg IM daily x 3 days followed by 1000 mcg p.o. daily after that which should be continued on discharge - Strongly encouraged alcohol cessation #HTN/HLD - BPs here are normal - Stopped chlorthalidone and losartan as noted for CHANEL - resumed statin as above - pressures stable, as noted above. #Prediabetes-he was told as an outpatient that with recent weight loss and exercise, he no longer has prediabetes. HgbA1c just barely in prediabetic range at 5.7% - No treatment for now - Continue low carbohydrate diet and weight loss at home DVT prophylaxis-SQ heparin Disposition- anticipate home discharge today. Follow-up with Dr. Sullivan and PCP within 1 week from discharge. Total Time Total Time Spent Total Time Spent (In Minutes): Terry Gonzalez DO, attending physician, spent 30 minutes myself seeing the patient, discussing with reviewing the chart, and documenting today. Discharge Plan Discharge Items Patient Disposition: Home - Self-Care Reason For Visit: CHANEL Discharge Diagnosis: CHANEL Condition on Discharge: Serious Activity: Per Instructions section Non-emergency contact: Primary Care Provider and Pupil Personnel Worker Call non-emergency contact if: you have any medication questions, your symptoms worsen, your pain is not controlled and you have a fever Follow-up/Referrals: Buddy Sullivan DO [Physician] - Shweta Underwood [Primary Care Provider] - 08/03/25 7:45 am Diet: Heart Healthy and Low Potassium (2gm) Addtl Attending Provider Instructions: You were admitted to [facility] for treatment of an acute kidney injury, which was suspected to be the result of your home chlorthalidone prescription. Ultrasound of your kidneys did not show obstruction and renal artery ultrasound was negative for renal artery stenosis. Serum and urine immunoelectrophoresis studies are pending. During admission, your chlorthalidone and losartan were held. Please continue holding these medications until you are seen in follow-up by your PCP and mechanism assembler. Your blood pressures have been within normal range, therefore we will hold off on starting another medication. Please follow-up with your PCP for blood pressure monitoring. Repeat blood work has been ordered. Please complete within 3-4 days from discharge. Please make follow-up appointment with Dr. Sullivan with nephrology to keep m onitoring your kidney function and electrolytes. Your liver enzymes were also found to be elevated during admission. Your rosuvastatin was held for a few days, however was restarted yesterday at a lower dose. Take rosuvastatin 20mg (previously 40mg) daily. This has been sent to your pharmacy. You were also found to have a vitamin B12 deficiency which is attributing to your low blood count. A vitamin B12 supplement has been sent to your pharmacy. Please take daily. You can continue other home medications as prescribed. Please follow a low-potassium diet and avoid NSAIDs (ibuprofen, advil, etc.) until seen in follow-up. Medications HOLD: chlorthalidone and losartan NEW: rosuvastatin 20mg daily, cyanocobalamin 1000 mcg daily Continue other home medications Contact your PCP, mechanism assembler, or return to care if your symptoms worsen or fail to improve. Pending Studies at Discharge: No Stand-Alone Forms: My [facility] Big [employer], Smoking Cessation Medications and DC Order Prescriptions: New cyanocobalamin (vitamin B-12) 500 mcg Tablet 1,000 mcg PO QAM Qty: 60 0RF rosuvastatin 20 mg Tablet 20 mg PO DAILY Qty: 30 0RF thiamine HCl (vitamin B1) 100 mg Tablet 100 mg PO QAM Qty: 30 0RF folic acid 1 mg Tablet 1 mg PO QAM Qty: 30 0RF Continued multivitamin [Daily Multi-Vitamin] Tablet 1 tab PO QAM Patient Comments: 07/22- otc unable to verify Medical Marijuana Card 1 dose PO UD PRN (Reason: anxiety/sleep) Patient Comments: 07/22- unable to verify Held losartan [Cozaar] 50 mg Tablet 50 mg PO QAM Hold Instructions: Resume on 09/16/25. hold until seen by nephrology chlorthalidone 25 mg tablet 25 mg PO DAILY Hold Instructions: Resume on 09/16/25. hold until seen by nephrology for follow-up Discontinued rosuvastatin 40 mg tablet 40 mg PO DAILY Discharge Orders: Discharge Order (Routine); Ordered 07/28/25 Ordered By: Sabi Llanos/Other Patient Handouts: Alcoholism Resources, Alcoholism: Getting Help, Alcohol Withdrawal: What to Expect Admission Data Admit Date/Time: 07/22/25 17:13 Attending Provider: Terry Suazo Admit Provider: Tussey,Diana B. Primary Care Provider: Shweta Underwood Other Providers: Diana Srinivasan; Buddy Sullivan Other Interventions: Discharge Summary Assessment (RN) Last Done: 07/28/25 10:52 Supervising Physician Co-Signing Physician Notes ATTESTATION I also saw the patient and confirmed bennett portions of the history and exam. I agree with the impression and plan in the resident documentation, and as summarized below. Continues to feel well. EXAM VSS Alert and oriented. No distress appreciated. Heart rate regular Respirations nonlabored DATA Labs hemoglobin 12.4, BUN 36, creatinine 3.50 potassium 3.7 IMPRESSION & PLAN Acute kidney injury Hypertension Anemia Elevated LFTs Appreciate nephrology consultation; OK for discharge today with follow up as reviewed with nephrology and myself Low potassium diet No NSAIDS/ETOH Hold ARB and diuretic Lab work in one week Nephrology follow up 10-14 days We also reduced rosuvastatin dose from 40 mg to 20 mg; recommend repeat lipids in 6-8 weeks Additional per resident documentation Resident Activity Tracking Resident Involvement: Resident Care Provided Care Provided: Adult Hospital Medicine
[2025-07-28 10:52] VITALS: BP 127/81
[2025-07-29 09:16] LABS: Albumin 3.7 g/dL (3.8-4.8); Beta-1-Globulin 0.5 g/dL (0.4-0.6); Gamma Globulin 1.1 g/dL (0.8-1.7); Total Protein 7.1 g/dL (6.1-8.1)
== END 2025-07-28 11:32 | disposition home or self-care (01) | DRG 683 ==
LOC: SUATTDRO → ED 13:36 → SUATTDRO 17:13 → 2N 17:13